=== PATIENT | female | born 1955 | race Hispanic/Latino ===

== ENCOUNTER 2016-08-21 07:21 | Day surgery (SDC) | payer MEDICARE ==
[2016-08-21] MEDS ORDERED: NACL 0.9% 500 ML 500 ML IV SCH (08:00)
[2016-08-21] MEDS ORDERED: HEPARIN/NS 5000 UNIT/500ML(CATH LAB) 1,000 ML IR ONE (09:40)
[2016-08-21] MEDS ORDERED: NITROGLYCERIN SYRINGE 3 ML ONE (09:40)
[2016-08-21] MEDS ORDERED: CALAN ONE (09:40)
[2016-08-21] MEDS ORDERED: XYLOCAINE 2% INFILTRATI ONE (09:40)
[2016-08-21] MEDS ORDERED: SUBLIMAZE ONE (09:42)
[2016-08-21] MEDS: VERSED ONE ×2 (09:55→10:05)
[2016-08-21] MEDS: HEPARIN 10,000 UNITS/10 ML ONE ×2 (09:57→10:17)
[2016-08-21] MEDS ORDERED: NACL 0.9% 500 ML 500 ML ONE ×2 (10:00→10:05)
--- NOTE | 2016-08-21 10:54 | Short Stay Summary ---
Short Stay Documentation Date of service: 08/21/16 - History H&P: obtained from office - Allergies and Medications Current Medications: Allergies azithromycin [From Zithromax Z-Ankur] Allergy (Verified 01/18/16 20:43) Unknown cephalexin monohydrate [From Keflex] Allergy (Verified 08/16/16 08:20) Unknown erythromycin base [From E-Mycin] Allergy (Verified 01/18/16 20:43) Unknown morphine Allergy (Verified 01/18/16 20:43) Unknown oxycodone Allergy (Verified 01/18/16 20:43) Unknown oxycodone HCl [From OxyContin] Allergy (Verified 08/16/16 08:23) Unknown aspirin Adverse Reaction (Verified 04/26/16 06:53) Bleeding codeine Adverse Reaction (Verified 04/26/16 06:53) Nausea Penicillins Adverse Reaction (Verified 04/26/16 06:53) Swelling antinflamatories Allergy (Uncoded 01/18/16 20:43) Unknown Home Medications Medication Instructions Recorded Confirmed Last Taken Type Citalopram [celeXA] 10 mg PO QDAY 01/20/16 08/21/16 08/20/16 History Fluticasone [Flonase] 1 spray NS QDAY 01/20/16 08/21/16 08/20/16 History Furosemide [Lasix TAB] 40 mg PO BID 01/20/16 08/21/16 08/20/16 History Gabapentin [Neurontin] 400 mg PO TID 01/20/16 08/21/16 08/20/16 History Glimepiride [Amaryl] 4 mg PO BID 01/20/16 08/21/16 08/20/16 History Insulin Regular, Human [Humulin R 8 - 12 unit SQ AC 01/20/16 08/21/16 08/20/16 History U-500 Kwikpen] Ipratropium/Albuter (Nf) 2 puff IH QID 01/20/16 08/21/16 08/20/16 History [Combivent Inhaler] Tizanidine HCl 4 mg PO TID 01/20/16 08/21/16 04/25/16 History Tramadol HCl [traMADol] 50 mg PO 4XD 01/20/16 08/21/16 08/20/16 History Multivitamin Tab W-MINERAL 1 each PO QDAY #30 tablet 04/27/16 08/21/16 08/20/16 Rx [Multiple Vitamin/Mineral (Theragran M)] Levothyroxine [Synthroid] 100 mcg PO QAM 08/16/16 08/21/16 08/20/16 History Pantoprazole [Protonix TAB] 40 mg PO QDAY 08/16/16 08/21/16 08/20/16 History Baclofen [Lioresal] 10 mg PO TID #30 tablet 08/18/16 08/21/16 08/20/16 Rx Losartan [Cozaar] 50 mg PO QDAY #30 tablet 08/18/16 08/21/16 08/20/16 Rx Metoprolol [Lopressor TAB] 25 mg PO BID #60 tablet 08/18/16 08/21/16 08/20/16 Rx ALBUTEROL NEB's [Proventil] 2.5 mg IH DAILY PRN 08/21/16 08/21/16 08/20/16 History Ipratropium/Albuter (Nf) 2 puff IH QID PRN 08/21/16 08/21/16 08/20/16 History [Combivent (Nf)] Active Medications Sodium Chloride (Nacl 0.9% 500 Ml) 500 mls @ 50 mls/hr IV DIRECT JESI Stop: 08/21/16 17:59 Last Admin: 08/21/16 08:44 Dose: 50 mls/hr - Brief post op/procedure progress note Date of procedure: 08/21/16 Pre-op diagnosis: angina Post-op diagnosis: same Procedure: see report Anesthesia: local Estimated blood loss: none Pathology: none - Disposition Condition at discharge: Good Disposition: DC-01 TO HOME OR SELFCARE - Discharge Diagnoses (1) Tobacco abuse Status: Chronic (2) CAD (coronary artery disease) Status: Acute Qualifiers: Coronary Disease-Associated Artery/Lesion type: [place] artery [place] vs. transplanted heart: N Associated angina: with stable angina (3) Hyperlipemia, mixed Status: Chronic (4) Chest pain Status: Chronic Qualifiers: Chest pain type: C Ischemic chest pain type: stable angina pectoris Qualified Code(s): I20.8 - Other forms of angina pectoris (5) Dyspnea Status: Chronic Qualifiers: Dyspnea type: dyspnea on exertion Qualified Code(s): R06.09 - Other forms of dyspnea (6) Hypertension Status: Chronic Qualifiers: Hypertension type: essential hypertension Qualified Code(s): I10 - Essential (primary) hypertension (7) Diabetes mellitus Status: Acute Qualifiers: Diabetes mellitus type: type 2 Diabetes mellitus complication status: with circulatory complication Diabetes mellitus complication detail: D Diabetic retinopathy severity: D Proliferative retinopathy type: P Diabetes mellitus macular edema: D Diabetes mellitus usp insulin use: without long term acute care registered nurse use Laterality: L Chronic kidney disease stage: C Short Stay Discharge Plan Activity: advance as tolerated Diet: low fat, low cholesterol, low salt, diabetic Special Instructions: hold Metformin (for two days) Follow up with: BECKA RECINOS MD [Primary Care Provider] - 7 Days
[2016-08-21 14:07] VITALS: BP 115/40
--- NOTE | 2016-08-21 14:22 | Cardiac Catherization Report ---
PROCEDURE: This is a left heart cath with a fractional flow reserve of the LAD done on 08/21/2016. CLINICAL INFORMATION: This is a 61-year-old female with history of tobacco abuse, known coronary artery disease, had nonobstructive coronary artery disease on cath done here for staged fractional flow reserve of the LAD, so left heart cath with fractional floor reserve of the LAD was performed in the right radial artery, sterile technique, local anesthesia, 6-[place] radial sheath inserted. Left system engaged with EBU 3.5 guiding catheter. FINDINGS: 1. Left main is large and patent, bifurcates a medium caliber LAD, proximal patent mid diffuse 70%, distal is patent. Diagonal 1 small caliber vessels is patent. Circumflex is a large caliber vessel is patent. OM1 is a large caliber vessel patent. Distal circumflex OM1 has 30% lesion. 2. Use fractional flow reserve wire and crossed after normalization, crossed into the distal LAD, gave intracoronary adenosine 140 mcg x2 and 0.75 and 0.76 and 2 infusions. 3. Discussion with the patient. The patient states had GI bleeding with aspirin, does not take aspirin. So in view of the patient's inability to take dual antiplatelet agents, at this time we will hold angioplasty and treat medically, remove coronary ffr wire, multiple angiograms, continue TIMI3 flow, 70% stenosis with no dissection or perforation noted. 4. A 6-[place]ran guiding catheter taken over guidewire, 6-[place]orran radial sheath was discontinued. Radial dressing applied. No hematoma. No bleeding. SUMMARY: 1. Significant mid LAD disease of 70% with fractional flow reserve is 0.75 and 0.76. 2. Nonobstructive coronary artery disease and OM1 and RCA. Normal LV function, left main patent, the OM1 patent. 3. We will try low-dose aspirin with PPI and Plavix and antianginal medications and treat medically. If the patient fails medical treatment, then we will consider either robotic OLIVAREZ to LAD or PCI of the LAD if the patient could handle dual antiplatelet agents. JOB# [id number] JINNY/THEODORA QUINTANA
== END 2016-08-21 14:30 | disposition home or self-care (01) ==
LOC: OPU 07:21
PROVIDERS: ATTEND Internal Medicine
DX: I25.10 Atherosclerotic heart disease of native coronary artery without angina pectoris (principal); E78.2 Mixed hyperlipidemia; I10 Essential (primary) hypertension; E11.9 Type 2 diabetes mellitus without complications; Z96.659 Presence of unspecified artificial knee joint; Z87.891 Personal history of nicotine dependence; Z79.899 Other long term (current) drug therapy; Z79.4 Long term (current) use of insulin; Z88.1 Allergy status to other antibiotic agents; Z88.5 Allergy status to narcotic agent; Z88.8 Allergy status to other drugs, medicaments and biological substances; Z88.0 Allergy status to penicillin; Z90.710 Acquired absence of both cervix and uterus
CPT/HCPCS: 82962; 85347; 93005; 93010; 93458; 93571; C1769; C1887; C1894; J0153; J1644; J2250; J3010; J7040; Q9967

== ENCOUNTER 2016-08-23 00:21 | Emergency (ER) | payer MEDICARE ==
[2016-08-23] MEDS ORDERED: NACL 0.9% 1000 ML 1,000 ML IV ONE (01:11)
[2016-08-23 01:48] LABS: Basophils % (Auto) 0.3 % (0.0-1.8); Eosinophils % (Auto) 1.2 % (0.0-4.3); Hematocrit 45.5 % (30.3-42.9); Hemoglobin 14.7 gm/dl (10.1-14.3); Mean Corpuscular HGB Conc 32 % (30-34); Mean Corpuscular Volume 80 fl (79-97); Platelet Count 419 K/mm3 (140-440); Red Blood Count 5.71 M/mm3 (3.65-5.03); White Blood Count 13.1 K/mm3 (4.5-11.0)
[2016-08-23 01:56] LABS: Mean Corpuscular Hemoglobin 26 pg (28-32)
[2016-08-23 01:58] LABS: INR 1.03 (0.87-1.13)
[2016-08-23 01:59] LABS: Partial Thromboplastin Time 30.7 Sec. (24.2-36.6)
[2016-08-23 02:04] LABS: Albumin 4.3 g/dL (3.9-5); Albumin/Globulin Ratio 1.2 %; Bilirubin,Total 0.4 mg/dL (0.1-1.2); Chloride 100.4 mmol/L (98-107); Potassium 4.6 mmol/L (3.6-5.0)
--- NOTE | 2016-08-23 11:56 | Emergency Department Report ---
ED GI Bleed HPI - General Chief complaint: GI Bleed Stated complaint: BLOOD CLOTS Time Seen by Provider: 08/23/16 11:45 Source: patient Mode of arrival: Ambulatory Limitations: Physical Limitation - History of Present Illness MD complaint: blood streaked stool -: Gradual, days(s) Location: diffuse (days ago but not today) Radiation: none Severity scale (0 -10): 3 Quality: other (aching) Consistency: intermittent Improves with: none Worsens with: none Associated Symptoms: abdominal pain. denies: nausea, vomiting, epistaxis, fever /chills, headaches, loss of appetite, malaise, easy bruising, rash, other bleeding, shortness of breath, syncope, weakness - Related Data Home Medications Medication Instructions Recorded Confirmed Last Taken Citalopram [celeXA] 10 mg PO QDAY 01/20/16 08/21/16 08/20/16 Fluticasone [Flonase] 1 spray NS QDAY 01/20/16 08/21/16 08/20/16 Furosemide [Lasix TAB] 40 mg PO BID 01/20/16 08/21/16 08/20/16 Gabapentin [Neurontin] 400 mg PO TID 01/20/16 08/21/16 08/20/16 Glimepiride [Amaryl] 4 mg PO BID 01/20/16 08/21/16 08/20/16 Insulin Regular, Human [Humulin R 8 - 12 unit SQ AC 01/20/16 08/21/16 08/20/16 U-500 Kwikpen] Ipratropium/Albuter (Nf) 2 puff IH QID 01/20/16 08/21/16 08/20/16 [Combivent Inhaler] Tizanidine HCl 4 mg PO TID 01/20/16 08/21/16 04/25/16 Tramadol HCl [traMADol] 50 mg PO 4XD 01/20/16 08/21/16 08/20/16 Levothyroxine [Synthroid] 100 mcg PO QAM 08/16/16 08/21/16 08/20/16 Pantoprazole [Protonix TAB] 40 mg PO QDAY 08/16/16 08/21/16 08/20/16 ALBUTEROL NEB's [Proventil 0.083% 2.5 mg IH DAILY PRN 08/21/16 08/21/16 08/20/16 NEBS] Ipratropium/Albuter (Nf) 2 puff IH QID PRN 08/21/16 08/21/16 08/20/16 [Combivent Inhaler] Previous Rx's Medication Instructions Recorded Last Taken Type Multivitamin Tab W-MINERAL 1 each PO QDAY #30 tablet 04/27/16 08/20/16 Rx [Multiple Vitamin/Mineral (Theragran M)] Baclofen [Lioresal] 10 mg PO TID #30 tablet 08/18/16 08/20/16 Rx Losartan [Cozaar] 50 mg PO QDAY #30 tablet 08/18/16 08/20/16 Rx Metoprolol [Lopressor TAB] 25 mg PO BID #60 tablet 08/18/16 08/20/16 Rx Aspirin EC [Aspirin Enteric Coated 81 mg PO QDAY #30 tablet.dr 08/21/16 Unknown Rx TAB] Clopidogrel Bisulfate [Plavix] 75 mg PO DAILY #30 tablet 08/21/16 Unknown Rx ISOSORBIDE MONOnitrate [Imdur ER] 30 mg PO DAILY #30 tab.er.24h 08/21/16 Unknown Rx Pantoprazole [Protonix] 40 mg PO QDAY #30 tablet 08/21/16 Unknown Rx Levofloxacin [Levaquin TAB] 500 mg PO BID #20 tablet 08/23/16 Unknown Rx Allergies Allergy/AdvReac Type Severity Reaction Status Date / Time azithromycin Allergy Unknown Verified 01/18/16 20:43 [From Zithromax Z-Ankur] cephalexin monohydrate Allergy Unknown Verified 08/16/16 08:20 [From Keflex] erythromycin base Allergy Unknown Verified 01/18/16 20:43 [From E-Mycin] morphine Allergy Unknown Verified 01/18/16 20:43 oxycodone Allergy Unknown Verified 01/18/16 20:43 oxycodone HCl Allergy Unknown Verified 08/16/16 08:23 [From OxyContin] aspirin AdvReac Bleeding Verified 04/26/16 06:53 codeine AdvReac Nausea Verified 04/26/16 06:53 Penicillins AdvReac Swelling Verified 04/26/16 06:53 antinflamatories Allergy Unknown Uncoded 01/18/16 20:43 ED Review of Systems ROS: Stated complaint: BLOOD CLOTS Other details as noted in HPI Other: GENERAL: No weight change, fatigue, weakness, fever, chills, or night sweats SKIN: No changes in skin or hair, no itching, no rashes, no jaundice HEAD: No trauma, headache, or visual changes EYES: No blurriness, tearing, itching, acute visual loss, conjunctival discoloration, or scleral icterus EARS: No hearing loss, tinnitus, vertigo, or earache NOSE: No rhinorrhea, stuffiness, sneezing, itching, or epistaxis MOUTH: No bleeding gums, hoarseness, sore throat, or swelling CARDIAC: No new murmur, chest pain, palpitations, dyspnea on exertion, orthopnea , PND, or edema RESPIRATORY: No shortness of breath, wheeze, cough, sputum production, hemoptysis, pneumonia, asthma, bronchitis, or emphysema GI: Abdominal pain, hematochezia URINARY: No frequency, urgency, polyuria, dysuria, hematuria, or incontinence MUSCULOSKELETAL: No muscle weakness, joint stiffness, decrease in range of motion, redness, swelling, tenderness NEUROLOGIC: No loss of sensation, numbness, tingling, tremors, weakness, paralysis, seizures HEMATOLOGIC: No anemia, easy bruising, bleeding, petechiae, or purpura ENDOCRINE: No hot or cold intolerance, sweating, polyuria, polydipsia or, polyphagia no thyroid problems PSYCHIATRIC: No change in mood, no anxiety, no depression ED Past Medical Hx - Past Medical History Hx Hypertension: Yes Hx Congestive Heart Failure: Yes Hx Diabetes: Yes Hx Liver Disease: Yes (enlarged liver) Hx Arthritis: Yes Hx Kidney Stones: Yes Hx Asthma: No Hx COPD: Yes Additional medical history: parathyroid probs. chronic back pain. fibroid mylagia. neuropathy. anemia - Surgical History Additional Surgical History: back. hysterectomy. knee replacement right 1997 - Social History Smoking Status: Former Smoker Substance Use Type: None - Medications Home Medications: Home Medications Medication Instructions Recorded Confirmed Last Taken Type Citalopram [celeXA] 10 mg PO QDAY 01/20/16 08/21/16 08/20/16 History Fluticasone [Flonase] 1 spray NS QDAY 01/20/16 08/21/16 08/20/16 History Furosemide [Lasix TAB] 40 mg PO BID 11/08/21/16 08/20/16 History Gabapentin [Neurontin] 400 mg PO TID 01/20/16 08/21/16 08/20/16 History Glimepiride [Amaryl] 4 mg PO BID 01/20/16 08/21/16 08/20/16 History Insulin Regular, Human [Humulin R 8 - 12 unit SQ AC 01/20/16 08/21/16 08/20/16 History U-500 Kwikpen] Ipratropium/Albuter (Nf) 2 puff IH QID 01/20/16 08/21/16 08/20/16 History [Combivent Inhaler] Tizanidine HCl 4 mg PO TID 01/20/16 08/21/16 04/25/16 History Tramadol HCl [traMADol] 50 mg PO 4XD 01/20/16 08/21/16 08/20/16 History Multivitamin Tab W-MINERAL 1 each PO QDAY #30 tablet 04/27/16 08/21/16 08/20/16 Rx [Multiple Vitamin/Mineral (Theragran M)] Levothyroxine [Synthroid] 100 mcg PO QAM 08/16/16 08/21/16 08/20/16 History Pantoprazole [Protonix TAB] 40 mg PO QDAY 08/16/16 08/21/16 08/20/16 History Baclofen [Lioresal] 10 mg PO TID #30 tablet 08/18/16 08/21/16 08/20/16 Rx Losartan [Cozaar] 50 mg PO QDAY #30 tablet 08/18/16 08/21/16 08/20/16 Rx Metoprolol [Lopressor TAB] 25 mg PO BID #60 tablet 08/18/16 08/21/16 08/20/16 Rx ALBUTEROL NEB's [Proventil 0.083% 2.5 mg IH DAILY PRN 08/21/16 08/21/16 History NEBS] Aspirin EC [Aspirin Enteric Coated 81 mg PO QDAY #30 tablet. 08/21/16 Unknown Rx TAB] Clopidogrel Bisulfate [Plavix] 75 mg PO DAILY #30 tablet 08/21/16 Unknown Rx ISOSORBIDE MONOnitrate [Imdur ER] 30 mg PO DAILY #30 tab.er.24h 08/21/16 Unknown Rx Ipratropium/Albuter (Nf) 2 puff IH QID PRN 08/21/16 08/21/16 08/20/16 History [Combivent Inhaler] Pantoprazole [Protonix] 40 mg PO QDAY #30 tablet 08/21/16 Unknown Rx Levofloxacin [Levaquin TAB] 500 mg PO BID #20 tablet 08/23/16 Unknown Rx ED Physical Exam - General Limitations: Physical Limitation - Other Other exam information: GENERAL: Patient in no acute distress HEAD: Normocephalic, atraumatic EYES: PERRLA, EOM intact, no scleral icterus, no conjunctival hemorrhage, visual marquis and acuity wnl, NOSE: No tenderness, discharge, sinus tenderness MOUTH: No erythema, bleeding, exudate HEART: Regular rate and rhythm, no murmur, S1-S2 are auscultated, pulses are symmetric LUNGS: No wheezing, rales, rhonchi, bilateral breath sounds ABDOMEN: Normal bowel sounds, no tenderness, no rebound, no guarding, no masses , no CVA tenderness MUSCULOSKELETAL: Normal joint range of motion, no redness, no swelling, no tenderness NEUROLOGIC: GCS 15, Alert and Oriented x3, Cranial nerves intact, normal sensation, normal strength, no cerebellar deficit PSYCHIATRIC: No homicidal or suicidal ideation, no anxiety, no depression, no hallucinations SKIN: Skin is warm and dry, no wounds, no rashes ED Course Vital Signs 08/23/16 08/23/16 08/23/16 01:05 04:57 11:44 Temperature 98.4 F 97.9 F Pulse Rate 68 60 89 Respiratory 16 16 18 Rate Blood Pressure 140/51 151/81 Blood Pressure 181/76 [Right] O2 Sat by Pulse 97 96 100 Oximetry 08/23/16 13:54 Temperature Pulse Rate 81 Respiratory 18 Rate Blood Pressure Blood Pressure 187/53 [Right] O2 Sat by Pulse 97 Oximetry ED Medical Decision Making - Lab Data Result diagrams: 08/23/16 01:16 08/23/16 01:16 - EKG Data Interpretation: no acute changes - Radiology Data Radiology results: report reviewed - Medical Decision Making Patient comfortable. Updated with results. Plan discharge with outpatient follow-up. Patient agrees with plan and will return if symptoms worsen. Critical care attestation.: If time is entered above; I have spent that time in minutes in the direct care of this critically ill patient, excluding procedure time. ED Disposition Clinical Impression: Colitis Disposition: DC-01 TO HOME OR SELFCARE Is pt being admited?: No Condition: Stable Instructions: Infectious Colitis (ED) Prescriptions: Levofloxacin [Levaquin TAB] 500 mg PO BID #20 tablet Referrals: PRIMARY CARE, [Primary Care Provider] - 2-3 Days [facility] [Provider Group] - 2-3 Days Forms: Accompanied Note Time of Disposition: 14:18
[2016-08-23] MEDS ORDERED: NACL 0.9% 1000 ML 1,000 ML ONE (12:32)
[2016-08-23 13:55] VITALS: BP 187/53
--- NOTE | 2016-08-23 13:59 | Cat Scan Report ---
CT ABDOMEN AND PELVIS WITH CONTRAST INDICATION: Pain. COMPARISON: None similar. FINDINGS: Abdomen and pelvis CT performed following intravenous administration of 100 cc of Omnipaque 300. LUNG BASES: Top normal heart size. Few aortic and coronary atherosclerotic calcifications. Slight left basilar horizontal atelectasis or scarring. Some motion artifact. No effusions. Nonspecific distal esophageal wall prominence/thickening, not excluded for gastroesophageal reflux and/or hiatal hernia, amongst others. ABDOMEN: Left hepatic lobe tip extends into the left upper quadrant. Mild hepatic surface nodularity. Otherwise unremarkable liver, spleen, gallbladder, pancreas, adrenals, IVC and non-hydronephrotic kidneys. Nonaneurysmal abdominal aorta with extensive atherosclerotic aortoiliac calcifications. Few small retroperitoneal lymph nodes, predominantly subcentimeter with the largest aortocaval lymph node measuring 1.2 x 0.7 cm, axial image 38, series 2. No ascites. Patent vessels. Nonopacified GI tract evaluation limited, though grossly nonobstructive. Normal appendix. Ascending colon stool. However, distal transverse colon, splenic flexure and almost entire descending colon demonstrates diffuse wall thickening and surrounding fat stranding. PELVIS: Uterus surgically absent. Unremarkable urinary bladder and the rectum. Mild sigmoid diverticulosis. Few pelvic phleboliths. No free fluid or significant adenopathy. Moderate multilevel imaged spinal degenerative changes, more so mid to lower thoracic and lower lumbar with disc degeneration/vacuum phenomenon and spurring. Left gluteal subcutaneous calcified injection granuloma. CONCLUSION: 1. CT findings in keeping with colitis involving distal transverse colon, splenic flexure and the descending colon, as detailed above. 2. Various other incidental findings, including the lung bases, mild cirrhosis, hysterectomy, diverticulosis and multilevel spinal degenerative changes, amongst others, as above. Thank you for the opportunity to participate in this patient's care.
[2016-08-23] MEDS ORDERED: LEVAQUIN PO ONE (14:15)
== END 2016-08-23 14:54 | disposition home or self-care (01) ==
LOC: ED 00:21
DX: K52.9 Noninfective gastroenteritis and colitis, unspecified (principal); I10 Essential (primary) hypertension; E11.9 Type 2 diabetes mellitus without complications; J44.9 Chronic obstructive pulmonary disease, unspecified; Z87.891 Personal history of nicotine dependence
CPT/HCPCS: 36415; 74177; 80053; 83690; 85025; 85610; 85730; 86850; 86900; 86901; 93005; 93010; 96360; 96361; 99284; J7030; Q9967

== ENCOUNTER 2016-12-03 10:28 | Inpatient (IN) | payer MEDICARE, SELFPAY ==
[2016-12-03] MEDS ORDERED: BABY ASPIRIN PO ONE (11:39)
[2016-12-03 11:40] LABS: Basophils % (Auto) 0.4 % (0.0-1.8); Eosinophils % (Auto) 1.3 % (0.0-4.3); Mean Corpuscular HGB Conc 30 % (30-34); Mean Corpuscular Volume 79 fl (79-97); Platelet Count 336 K/mm3 (140-440); Red Blood Count 2.27 M/mm3 (3.65-5.03); Red Cell Distribution Width 15.4 % (13.2-15.2)
[2016-12-03 11:45] LABS: Hemoglobin 5.4 gm/dl (10.1-14.3)
--- NOTE | 2016-12-03 11:45 | Emergency Department Report ---
ED Chest Pain HPI - General Chief Complaint: Chest Pain Stated Complaint: CHEST PAIN Time Seen by Provider: 12/03/16 11:32 Source: EMS Mode of arrival: Ambulatory Limitations: Physical Limitation - History of Present Illness Initial Comments: Patient is 62 years old female with history of coronary artery disease hypertension and diabetes coming today's chest pain started one week getting worse last night described as pressure and left-sided. Patient did have cardiac cath in August 2016 which showed more than 70% stenosis in the mid LAD. According to Dr. Tobias report that they will try medical treatments if it fail then the patient would need a stent. MD Complaint: chest pain -: Gradual Onset: during rest, during exertion Pain Location: left chest Severity scale (0 -10): 7 Quality: pressure Consistency: intermittent - Related Data Home Medications Medication Instructions Recorded Confirmed Last Taken Citalopram [celeXA] 10 mg PO QDAY 01/20/16 08/21/16 08/20/16 Fluticasone [Flonase] 1 spray NS QDAY 01/20/16 08/21/16 08/20/16 Furosemide [Lasix TAB] 40 mg PO BID 01/20/16 08/21/16 08/20/16 Gabapentin [Neurontin] 400 mg PO TID 01/20/16 08/21/16 08/20/16 Glimepiride [Amaryl] 4 mg PO BID 01/20/16 08/21/16 08/20/16 Insulin Regular, Human [Humulin R 8 - 12 unit SQ AC 01/20/16 08/21/16 08/20/16 U-500 Kwikpen] Ipratropium/Albuter (Nf) 2 puff IH QID 01/20/16 08/21/16 08/20/16 [Combivent Inhaler] Tizanidine HCl 4 mg PO TID 01/20/16 08/21/16 04/25/16 Tramadol HCl [traMADol] 50 mg PO 4XD 01/20/16 08/21/16 08/20/16 Levothyroxine [Synthroid] 100 mcg PO QAM 08/16/16 08/21/16 08/20/16 Pantoprazole [Protonix TAB] 40 mg PO QDAY 08/16/16 08/21/16 08/20/16 ALBUTEROL NEB's [Proventil 0.083% 2.5 mg IH DAILY PRN 08/21/16 08/21/16 08/20/16 NEBS] Ipratropium/Albuter (Nf) 2 puff IH QID PRN 08/21/16 08/21/16 08/20/16 [Combivent Inhaler] Previous Rx's Medication Instructions Recorded Last Taken Type Multivitamin Tab W-MINERAL 1 each PO QDAY #30 tablet 04/27/16 08/20/16 Rx [Multiple Vitamin/Mineral (Theragran M)] Baclofen [Lioresal] 10 mg PO TID #30 tablet 08/18/16 08/20/16 Rx Losartan [Cozaar] 50 mg PO QDAY #30 tablet 08/18/16 08/20/16 Rx Metoprolol [Lopressor TAB] 25 mg PO BID #60 tablet 08/18/16 08/20/16 Rx Aspirin EC [Aspirin Enteric Coated 81 mg PO QDAY #30 tablet. 08/21/16 Unknown Rx TAB] Clopidogrel Bisulfate [Plavix] 75 mg PO DAILY #30 tablet 08/21/16 Unknown Rx ISOSORBIDE MONOnitrate [Imdur ER] 30 mg PO DAILY #30 tab.er.24h 08/21/16 Unknown Rx Pantoprazole [Protonix] 40 mg PO QDAY #30 tablet 08/21/16 Unknown Rx Levofloxacin [Levaquin TAB] 500 mg PO BID #20 tablet 08/23/16 Unknown Rx Allergies Allergy/AdvReac Type Severity Reaction Status Date / Time azithromycin Allergy Unknown Verified 01/18/16 20:43 [From Zithromax Z-Ankur] cephalexin monohydrate Allergy Unknown Verified 08/16/16 08:20 [From Keflex] erythromycin base Allergy Unknown Verified 01/18/16 20:43 [From E-Mycin] morphine Allergy Unknown Verified 01/18/16 20:43 oxycodone Allergy Unknown Verified 01/18/16 20:43 oxycodone HCl Allergy Unknown Verified 08/16/16 08:23 [From OxyContin] aspirin AdvReac Bleeding Verified 04/26/16 06:53 codeine AdvReac Nausea Verified 04/26/16 06:53 Penicillins AdvReac Swelling Verified 04/26/16 06:53 antinflamatories Allergy Unknown Uncoded 01/18/16 20:43 Heart Score - HEART Score History: Highly suspicious EKG: Significant ST-depression Age: 45-65 Risk factors: > 3 risk factors or hx of atherosclerotic disease Troponin: < normal limit HEART Score: 7 - Critical Actions Critical Actions: >7 pts:50-65% risk of adverse cardiac event. Early invasive measures ED Review of Systems ROS: Stated complaint: CHEST PAIN Other details as noted in HPI Comment: All other systems reviewed and negative Constitutional: denies: chills, fever ENT: denies: throat pain, dental pain Respiratory: shortness of breath. denies: cough, orthopnea Cardiovascular: chest pain. denies: palpitations, dyspnea on exertion Gastrointestinal: denies: abdominal pain, nausea, vomiting, diarrhea, constipation, hematemesis, melena, hematochezia Skin: denies: rash Neurological: denies: headache, weakness, numbness, paresthesias ED Past Medical Hx - Past Medical History Hx Hypertension: Yes Hx Congestive Heart Failure: Yes Hx Diabetes: Yes Hx Liver Disease: Yes (enlarged liver) Hx Arthritis: Yes Hx Kidney Stones: Yes Hx Asthma: No Hx COPD: Yes Additional medical history: parathyroid probs. chronic back pain. fibroid mylagia. neuropathy. anemia - Surgical History Additional Surgical History: back. hysterectomy. knee replacement right 1997 - Social History Smoking Status: Never Smoker - Medications Home Medications: Home Medications Medication Instructions Recorded Confirmed Last Taken Type Citalopram [celeXA] 10 mg PO QDAY 01/20/16 08/21/16 08/20/16 History Fluticasone [Flonase] 1 spray NS QDAY 01/20/16 08/21/16 08/20/16 History Furosemide [Lasix TAB] 40 mg PO BID 01/20/16 08/21/16 08/20/16 History Gabapentin [Neurontin] 400 mg PO TID 01/20/16 08/21/16 08/20/16 History Glimepiride [Amaryl] 4 mg PO BID 01/20/16 08/21/16 08/20/16 History Insulin Regular, Human [Humulin R 8 - 12 unit SQ AC 01/20/16 08/21/16 08/20/16 History U-500 Kwikpen] Ipratropium/Albuter (Nf) 2 puff IH QID 01/20/16 08/21/16 08/20/16 History [Combivent Inhaler] Tizanidine HCl 4 mg PO TID 01/20/16 08/21/16 04/25/16 History Tramadol HCl [traMADol] 50 mg PO 4XD 01/20/16 08/21/16 08/20/16 History Multivitamin Tab W-MINERAL 1 each PO QDAY #30 tablet 04/27/16 08/21/16 08/20/16 Rx [Multiple Vitamin/Mineral (Theragran M)] Levothyroxine [Synthroid] 100 mcg PO QAM 08/16/16 08/21/16 08/20/16 History Pantoprazole [Protonix TAB] 40 mg PO QDAY 08/16/16 08/21/16 08/20/16 History Baclofen [Lioresal] 10 mg PO TID #30 tablet 08/18/16 08/21/16 08/20/16 Rx Losartan [Cozaar] 50 mg PO QDAY #30 tablet 08/18/16 08/21/16 08/20/16 Rx Metoprolol [Lopressor TAB] 25 mg PO BID #60 tablet 08/18/16 08/21/16 08/20/16 Rx ALBUTEROL NEB's [Proventil 0.083% 2.5 mg IH DAILY PRN 08/21/16 08/21/16 History NEBS] Aspirin EC [Aspirin Enteric Coated 81 mg PO QDAY #30 tablet. 08/21/16 Unknown Rx TAB] Clopidogrel Bisulfate [Plavix] 75 mg PO DAILY #30 tablet 08/21/16 Unknown Rx ISOSORBIDE MONOnitrate [Imdur ER] 30 mg PO DAILY #30 tab.er.24h 08/21/16 Unknown Rx Ipratropium/Albuter (Nf) 2 puff IH QID PRN 08/21/16 08/21/16 08/20/16 History [Combivent Inhaler] Pantoprazole [Protonix] 40 mg PO QDAY #30 tablet 08/21/16 Unknown Rx Levofloxacin [Levaquin TAB] 500 mg PO BID #20 tablet 08/23/16 Unknown Rx ED Physical Exam - General Limitations: Physical Limitation General appearance: alert, in no apparent distress - Head Head exam: Present: normocephalic - Eye Eye exam: Present: normal appearance, other (pale conjuctiva) - ENT ENT exam: Present: normal exam - Neck Neck exam: Present: normal inspection - Respiratory Respiratory exam: Present: normal lung sounds bilaterally - Cardiovascular Cardiovascular Exam: Present: regular rate, normal rhythm, normal heart sounds - GI/Abdominal GI/Abdominal exam: Present: soft, normal bowel sounds. Absent: distended, tenderness, guarding, rebound, rigid, diminished bowel sounds, organomegaly, mass, bruit, pulsatile mass, hernia - Extremities Exam Extremities exam: Present: normal inspection, normal capillary refill. Absent: pedal edema - Back Exam Back exam: Present: normal inspection. Absent: CVA tenderness (R), CVA tenderness (L) - Neurological Exam Neurological exam: Present: alert, oriented X3, CN II-XII intact - Skin Skin exam: Present: warm, intact, normal color ED Course Vital Signs 12/03/16 10:48 Temperature 98.1 F Pulse Rate 69 Respiratory 16 Rate Blood Pressure 113/35 Blood Pressure 113/35 [Right] O2 Sat by Pulse 100 Oximetry RIP score - Rip Score Age > 65: (0) No Aspirin use within the Past 7 Days: (0) No 3 or more CAD Risk Factors: (1) Yes 2 or more Angina events in past 24 hrs: (1) Yes Known CAD with more than 50% Stenosis: (0) No Elevated Cardiac Markers: (0) No ST Deviation Greater than 0.5mm: (0) No RIP Score: 2 ED Medical Decision Making - Lab Data Result diagrams: 12/03/16 10:58 12/03/16 10:58 - EKG Data -: EKG Interpreted by Nh EKG shows normal: sinus rhythm - EKG Data Interpretation: nonspecific ST-T wave salty - Radiology Data Radiology results: report reviewed CXR WITH MILD CARDIOMEGALYY. - Medical Decision Making DISCUSS WITH DR NOVAK FOR ADMISSION. HE AGREED TO ADMIT TO HIS SERVICE. Critical care attestation.: If time is entered above; I have spent that time in minutes in the direct care of this critically ill patient, excluding procedure time. ED Disposition Clinical Impression: Anemia due to acute blood loss Chest pain Qualifiers: Ischemic chest pain type: stable angina pectoris Qualified Code(s): I20.8 - Other forms of angina pectoris Disposition: -09 OP ADMIT IP TO THIS HOSP Is pt being admited?: Yes Condition: Stable Instructions: Chest Pain (ED) Referrals: PRIMARY CARE,MD [Primary Care Provider] - 3-5 Days
[2016-12-03 11:46] LABS: Mean Corpuscular Hemoglobin 24 pg (28-32)
[2016-12-03 12:00] LABS: Alanine Aminotransferase 11 units/L (7-56); Albumin 3.6 g/dL (3.9-5); Albumin/Globulin Ratio 1.3 %; Alkaline Phosphatase 92 units/L (35-129); Anion Gap 17 mmol/L; Blood Urea Nitrogen 26 mg/dL (7-17); Calcium 8.9 mg/dL (8.4-10.2); Carbon Dioxide 25 mmol/L (22-30); Chloride 100.5 mmol/L (98-107); Glucose 88 mg/dL (65-100); Potassium 3.6 mmol/L (3.6-5.0); Sodium 139 mmol/L (137-145); Total Protein 6.3 g/dL (6.3-8.2)
--- NOTE | 2016-12-03 12:16 | XRay Report ---
AP CHEST: HISTORY: chest pain Heart size and pulmonary venous structures are of the upper limits of normal. The lungs are clear. No evidence for pneumonia, CHF or pneumothorax. The bony structures are grossly intact. IMPRESSION: Borderline heart size and pulmonary venous structures. No CHF.
[2016-12-03 12:19] LABS: Bilirubin,Urine NEG (Negative); Blood,Urine NEG (Negative); Ketones,Urine NEG (Negative); Leukocyte Esterase,Urine NEG (Negative); Nitrite,Urine NEG (Negative); Protein,Urine <15 mg/dL mg/dL (Negative); RBC,Urine < 1.0 /HPF (0.0-6.0); Urobilinogen,Urine < 2.0 mg/dL (<2.0)
[2016-12-03 12:23] LABS: INR 1.15 (0.87-1.13)
[2016-12-03 12:24] LABS: Partial Thromboplastin Time 29.3 Sec. (24.2-36.6)
[2016-12-03] MEDS ORDERED: NACL 0.9% 500 ML 500 ML IV ONE ×2 (12:28→23:39)
--- NOTE | 2016-12-03 12:37 | History and Physical Report ---
History of Present Illness Chief complaint: My chest hurts History of present illness: 61 YO Female with OA, COPD, Depression, Diastolic CHF, DM, HTN, Nicotine Dependence, CAD GI Bleed S/P Colonoscopy pending outpatient pill endoscopy, presents to ED for evaluation. Pt states that she has experienced pain in her chest over the past week, with worsening symptoms over the past 1 day. Pt states that pain is 7/10, crushing in nature, localized to the left chest, nonradiating, worsened with exertion, unrelieved with rest, intermittent, no associated with shortness of breath, or diaphoresis. Pt also complains of dark tarry stool. No reports of fever, chills, palpitations, syncope, BRBPR, productive cough, prolonged travel/immobility, individual/family history of DVT/ PE, hemoptysis, or recent ill contacts. Past History Past Medical History: arthritis, CAD, COPD, diabetes, heart failure, hypertension Past Surgical History: hysterectomy, total knee replacement, Other (back) Social history: , smoking Family history: hypertension Medications and Allergies Allergies Allergy/AdvReac Type Severity Reaction Status Date / Time azithromycin Allergy Unknown Verified 01/18/16 20:43 [From Zithromax Z-Ankur] cephalexin monohydrate Allergy Unknown Verified 08/16/16 08:20 [From Keflex] erythromycin base Allergy Unknown Verified 01/18/16 20:43 [From E-Mycin] morphine Allergy Unknown Verified 01/18/16 20:43 oxycodone Allergy Unknown Verified 01/18/16 20:43 oxycodone HCl Allergy Unknown Verified 08/16/16 08:23 [From OxyContin] aspirin AdvReac Bleeding Verified 04/26/16 06:53 codeine AdvReac Nausea Verified 04/26/16 06:53 Penicillins AdvReac Swelling Verified 04/26/16 06:53 antinflamatories Allergy Unknown Uncoded 01/18/16 20:43 Home Medications Medication Instructions Recorded Confirmed Last Taken Type Citalopram [celeXA] 10 mg PO QDAY 01/20/16 08/21/16 08/20/16 History Fluticasone [Flonase] 1 spray NS QDAY 01/20/16 08/21/16 08/20/16 History Furosemide [Lasix TAB] 40 mg PO BID 01/20/16 08/21/16 08/20/16 History Gabapentin [Neurontin] 400 mg PO TID 01/20/16 08/21/16 08/20/16 History Glimepiride [Amaryl] 4 mg PO BID 01/20/16 08/21/16 08/20/16 History Insulin Regular, Human [Humulin R 8 - 12 unit SQ AC 01/20/16 08/21/16 08/20/16 History U-500 Kwikpen] Ipratropium/Albuter (Nf) 2 puff IH QID 01/20/16 08/21/16 08/20/16 History [Combivent Inhaler] Tizanidine HCl 4 mg PO TID 01/20/16 08/21/16 04/25/16 History Tramadol HCl [traMADol] 50 mg PO 4XD 01/20/16 08/21/16 08/20/16 History Multivitamin Tab W-MINERAL 1 each PO QDAY #30 tablet 04/27/16 08/21/16 08/20/16 Rx [Multiple Vitamin/Mineral (Theragran M)] Levothyroxine [Synthroid] 100 mcg PO QAM 08/16/16 08/21/16 08/20/16 History Pantoprazole [Protonix TAB] 40 mg PO QDAY 08/16/16 08/21/16 08/20/16 History Baclofen [Lioresal] 10 mg PO TID #30 tablet 08/18/16 08/21/16 08/20/16 Rx Losartan [Cozaar] 50 mg PO QDAY #30 tablet 08/18/16 08/21/16 08/20/16 Rx Metoprolol [Lopressor TAB] 25 mg PO BID #60 tablet 08/18/16 08/21/16 08/20/16 Rx ALBUTEROL NEB's [Proventil 0.083% 2.5 mg IH DAILY PRN 08/21/16 08/21/16 History NEBS] Aspirin EC [Aspirin Enteric Coated 81 mg PO QDAY #30 tablet. 08/21/16 Unknown Rx TAB] Clopidogrel Bisulfate [Plavix] 75 mg PO DAILY #30 tablet 08/21/16 Unknown Rx ISOSORBIDE MONOnitrate [Imdur ER] 30 mg PO DAILY #30 tab.er.24h 08/21/16 Unknown Rx Ipratropium/Albuter (Nf) 2 puff IH QID PRN 08/21/16 08/21/16 08/20/16 History [Combivent Inhaler] Pantoprazole [Protonix] 40 mg PO QDAY #30 tablet 08/21/16 Unknown Rx Levofloxacin [Levaquin TAB] 500 mg PO BID #20 tablet 08/23/16 Unknown Rx Review of Systems Constitutional: no weight loss, no weight gain, no fever, no chills Ears, nose, mouth and throat: no ear pain, no ear discharge, no tinnitis, no decreased hearing, no nose pain, no nasal congestion, no nasal discharge, no sinus pressure Cardiovascular: chest pain, shortness of breath, no orthopnea, no palpitations, no rapid/irregular heart beat, no edema, no syncope, no paroxysmal nocturnal dyspnea Respiratory: no cough, no cough with sputum, no excessive sputum, no hemoptysis , no dyspnea on exertion Gastrointestinal: melena, no abdominal pain, no nausea, no vomiting, no diarrhea , no constipation Genitourinary Female: no pelvic pain, no flank pain, no menorrhagia, no dysuria , no urinary frequency, no urgency Rectal: no pain, no incontinence, no bleeding Musculoskeletal: no neck stiffness, no neck pain, no shooting arm pain, no arm numbness/tingling, no low back pain, no shooting leg pain Integumentary: no rash, no pruritis, no redness, no sores, no wounds, no jaundice, no boils Neurological: no head injury, no transient paralysis, no paralysis, no weakness , no parathesias, no numbness, no tingling, no seizures, no syncope, no tremors , no ataxia, no lack of coordination Psychiatric: no anxiety, no memory loss, no change in sleep habits, no sleep disturbances, no insomnia, no hypersomnia, no change in appetite, no change in libido, no suicidal ideation, no disorientation, no hallucinations Endocrine: no cold intolerance, no heat intolerance, no polyphagia, no excessive thirst, no polydipsia, no polyuria, no nocturia, no excessive sweating Allergic/Immunologic: no urticaria, no allergic rhinitis, no wheezing Exam - Constitutional Vitals: Temp Pulse Resp BP Pulse Ox 98.1 F 69 16 113/35 100 12/03/16 10:48 10/01/17 10:48 12/03/16 10:48 12/03/16 10:48 12/03/16 10:48 General appearance: Present: mild distress, obese, disheveled - EENT Eyes: Present: PERRL ENT: hearing intact, clear oral mucosa - Neck Neck: Present: supple, normal ROM - Respiratory Respiratory effort: normal Respiratory: bilateral: CTA, diminished - Cardiovascular Heart Sounds: Present: S1 & S2. Absent: rub, click - Extremities Extremities: pulses symmetrical, No edema Extremity abnormal: edema Peripheral Pulses: within normal limits - Abdominal General gastrointestinal: Present: soft, non-tender, non-distended, normal bowel sounds Female genitourinary: Present: normal - Integumentary Integumentary: Present: clear, dry, decreased turgor - Musculoskeletal Musculoskeletal: generalized weakness - Psychiatric Psychiatric: appropriate mood/affect, intact judgment & insight - Neurologic Neurologic: CNII-XII intact, moves all extremities Results - Labs CBC & Chem 7: 12/03/16 14:20 12/03/16 14:20 Labs: Abnormal lab results 12/03/16 12/03/16 12/03/16 Range/Units 10:49 10:58 10:58 RBC 2.27 L (3.65-5.03) M/mm3 Hgb 5.4 L* (10.1-14.3) gm/dl Hct 18.0 L* (30.3-42.9) % MCH 24 L (28-32) pg RDW 15.4 H (13.2-15.2) % Seg Neutrophils % 78.6 H (40.0-70.0) % Seg Neutrophils # 8.6 H (1.8-7.7) K/mm3 PT (12.2-14.9) Sec. INR (0.87-1.13) BUN 26 H (7-17) mg/dL POC Glucose 111 H (70-105) Albumin 3.6 L (3.9-5) g/dL 12/03/16 Range/Units 11:51 RBC (3.65-5.03) M/mm3 Hgb (10.1-14.3) gm/dl Hct (30.3-42.9) % MCH (28-32) pg RDW (13.2-15.2) % Seg Neutrophils % (40.0-70.0) % Seg Neutrophils # (1.8-7.7) K/mm3 PT 15.3 H (12.2-14.9) Sec. INR 1.15 H (0.87-1.13) BUN (7-17) mg/dL POC Glucose (70-105) Albumin (3.9-5) g/dL Assessment and Plan - Patient Problems (1) ACS (acute coronary syndrome) Current Visit: Yes Status: Acute Plan to address problem: Cardiology consulted, Serial cardiac enzymes, ekg, telemetry, d dimer, ppi therapy, (2) Angina at rest Current Visit: Yes Status: Acute Plan to address problem: Serial cardiac enzymes, ekg, telemetry, lipid panel, supportive care, cardiology consulted (3) Blood loss anemia Current Visit: Yes Status: Acute Plan to address problem: PRBC transfusion. Pt is S/P colonoscopy, concompliant with capsule endoscopy. Outpatient GI F/U for capsule endoscopy (4) Lower GI hemorrhage Current Visit: Yes Status: Acute Plan to address problem: PRBC transfusion, ppi therapy, serial cbc, serial abdominal exam (5) CAD (coronary artery disease) Current Visit: No Status: Acute Qualifiers: Coronary Disease-Associated Artery/Lesion type: nikolai artery Andreafski vs. transplanted heart: N Associated angina: with stable angina Plan to address problem: Continue medical management, risk factor reduction, low cholesterol diet, lipid panel (6) DVT prophylaxis Current Visit: Yes Status: Acute
[2016-12-03] MEDS ORDERED: DULCOLAX PR PRN (14:12)
[2016-12-03] MEDS ORDERED: TYLENOL PO PRN (14:12)
[2016-12-03] MEDS ORDERED: MILK OF MAGNESIA PO PRN (14:12)
[2016-12-03] MEDS ORDERED: SODIUM CHLORIDE FLUSH SYRINGE 10 ML IV PRN (14:12)
[2016-12-03 14:53] LABS: Basophils % (Auto) 0.4 % (0.0-1.8); Eosinophils % (Auto) 1.2 % (0.0-4.3); Mean Corpuscular HGB Conc 31 % (30-34); Mean Corpuscular Volume 78 fl (79-97); Platelet Count 345 K/mm3 (140-440); Red Blood Count 2.21 M/mm3 (3.65-5.03); Red Cell Distribution Width 15.4 % (13.2-15.2)
[2016-12-03 14:59] LABS: Anion Gap 16 mmol/L; BUN/Creatinine Ratio 35.71; Blood Urea Nitrogen 25 mg/dL (7-17); Calcium 8.7 mg/dL (8.4-10.2); Carbon Dioxide 26 mmol/L (22-30); Chloride 105.2 mmol/L (98-107); Cholesterol 81 mg/dL (50-199); Glucose 64 mg/dL (65-100); HDL Cholesterol 21 mg/dL (40-59); Hematocrit 17.3 % (30.3-42.9); Hemoglobin 5.4 gm/dl (10.1-14.3); LDL Cholesterol,Direct 33 mg/dL (50-130); Mean Corpuscular Hemoglobin 24 pg (28-32); Potassium 3.7 mmol/L (3.6-5.0); Sodium 143 mmol/L (137-145); Triglycerides 135 mg/dL (2-149)
[2016-12-03] MEDS: LIORESAL PO SCH (21:59)
[2016-12-03] MEDS: NEURONTIN PO SCH (21:59)
[2016-12-03] MEDS: ULTRAM PO PRN (22:00)
[2016-12-04] MEDS: ZOFRAN IV PRN ×2 (03:30→15:13)
[2016-12-04] MEDS: LIORESAL PO SCH ×3 (08:24→22:53)
[2016-12-04] MEDS: NEURONTIN PO SCH ×3 (08:24→22:54)
[2016-12-04] MEDS ORDERED: D50W (25GM) Syringe IV PRN (10:00)
--- NOTE | 2016-12-04 10:59 | Gastroenterology Consultation ---
History of Present Illness - Reason for Consult Consult date: 12/04/16 occult GI bleeding Requesting physician: BRENT NOVAK - History of Present Illness The patient is a 61 year old female for whom consultation was requested for GI bleeding. She has a long history of iron deficiency anemia which was initially evaluated in 2008 and again in April of this year when she presented with severe anemia. Colonic AVMs were ablated and the UGI tract was normal. The patient was place on Plavix for CAD last January, a 70% lesion. Stent was not placed although discussed. The stent was not placed due to her intermittent GI bleeding and subsequent antiplatelet drug requirements for a least a year.She has been intermittently passing tarry black stools again in the past week and developed chest pain. Hgb was 5.4 on admission. She is now asymptomatic post transfusion and a f/u H&H is ordered. She denies any abdominal pain, nausea or vomiting. Past History Past Medical History: arthritis, CAD, COPD, diabetes, heart failure, hypertension Past Surgical History: hysterectomy, total knee replacement, Other (back) Social history: , smoking Family history: hypertension Medications and Allergies Allergies Allergy/AdvReac Type Severity Reaction Status Date / Time azithromycin Allergy Unknown Verified 01/18/16 20:43 [From Zithromax Z-Ankur] cephalexin monohydrate Allergy Unknown Verified 08/16/16 08:20 [From Keflex] erythromycin base Allergy Unknown Verified 01/18/16 20:43 [From E-Mycin] morphine Allergy Unknown Verified 01/18/16 20:43 oxycodone Allergy Unknown Verified 01/18/16 20:43 oxycodone HCl Allergy Unknown Verified 08/16/16 08:23 [From OxyContin] aspirin AdvReac Bleeding Verified 04/26/16 06:53 codeine AdvReac Nausea Verified 04/26/16 06:53 Penicillins AdvReac Swelling Verified 04/26/16 06:53 antinflamatories Allergy Unknown Uncoded 01/18/16 20:43 Home Medications Medication Instructions Recorded Confirmed Last Taken Type Citalopram [celeXA] 10 mg PO QDAY 01/20/16 12/03/16 12/02/16 14:00 History 10mg Fluticasone [Flonase] 1 spray NS QDAY 01/20/16 12/03/16 12/02/16 21:00 History 1 spray Furosemide [Lasix TAB] 40 mg PO BID 01/20/16 12/03/16 12/03/16 08:00 History 40mg Gabapentin [Neurontin] 400 mg PO TID 01/20/16 12/03/16 12/03/16 08:00 History 400mg Glimepiride [Amaryl] 4 mg PO BID 01/20/16 12/03/16 12/03/16 08:00 History 4mg Insulin Regular, Human [Humulin R 8 - 12 unit SQ AC 01/20/16 12/03/16 12/03/16 08:00 History U-500 Kwikpen] Tramadol HCl [traMADol] 50 mg PO BID 01/20/16 12/03/16 12/03/16 08:00 History 50mg Multivitamin Tab W-MINERAL 1 each PO QDAY #30 tablet 04/27/16 12/03/16 12/03/16 08:00 Rx [Multiple Vitamin/Mineral 1 tab (Theragran M)] Levothyroxine [Synthroid] 100 mcg PO QAM 08/16/16 12/03/16 12/03/16 06:00 History 100mcg Baclofen [Lioresal] 10 mg PO TID #30 tablet 08/18/16 12/03/16 12/03/16 08:00 Rx 10mg Losartan [Cozaar] 50 mg PO QDAY #30 tablet 08/18/16 12/03/16 12/02/16 14:00 Rx 50mg Metoprolol [Lopressor TAB] 25 mg PO BID #60 tablet 08/18/16 12/03/16 12/03/16 08 :00 Rx 25mg ALBUTEROL NEB's [Proventil 0.083% 2.5 mg IH DAILY PRN 08/21/16 12/03/16 22:00 History NEBS] Aspirin EC [Aspirin Enteric Coated 81 mg PO QDAY #30 tablet. 08/21/1612/02/16 21:00 Rx TAB] 81mg Clopidogrel Bisulfate [Plavix] 75 mg PO DAILY #30 tablet 08/21/16 12/03/1612/02 17:00 Rx 75mg ISOSORBIDE MONOnitrate [Imdur ER] 30 mg PO DAILY #30 tab.er.24h 08/21/1612/02/16 08:00 Rx 30mg Ipratropium/Albuter (Nf) 2 puff IH QID PRN 08/21/16 12/03/16 12/02/16 22:00 History [Combivent Inhaler] Pantoprazole [Protonix] 40 mg PO QDAY #30 tablet 08/21/16 12/03/16 12/03/16 08: 00 Rx 40mg traMADol 100 mg PO QHS 12/03/16 12/03/16 12/02/16 21:00 History 100mg Active Meds: Active Medications Acetaminophen (Tylenol) 650 mg PO Q4H PRN PRN Reason: Pain MILD(1-3)/Fever >100.5/LUU Baclofen (Lioresal) 10 mg PO TID [facility] Last Admin: 12/04/16 08:24 Dose: 10 mg Bisacodyl (Dulcolax) 10 mg [place] QDAY PRN PRN Reason: Constipation unrelieved by MOM Dextrose (D50w (25gm) Syringe) 50 ml IV PRN PRN PRN Reason: Hypoglycemia Gabapentin (Neurontin) 400 mg PO TID [facility] Last Admin: 12/04/16 08:24 Dose: 400 mg Glimepiride (Amaryl) 4 mg PO BIDDIAB [facility] Sodium Chloride (Nacl 0.9% 500 Ml) 500 mls @ 42 mls/hr IV ONCE ONE Stop: 12/04/16 11:33 Last Admin: 12/03/16 23:26 Dose: 42 mls/hr Insulin Aspart (Novolog) 0 units SUB-Q QACHS [facility] PRN Reason: Protocol Levothyroxine Sodium (Synthroid) 100 mcg PO DAILY@0600 [facility] Magnesium Hydroxide (Milk Of Magnesia) 30 ml PO Q4H PRN PRN Reason: Constipation Ondansetron HCl (Zofran) 4 mg IV Q8H PRN PRN Reason: N/V unrelieved by Reglan Last Admin: 12/04/16 03:30 Dose: 4 mg Pantoprazole Sodium (Protonix) 40 mg PO QDAY [facility] Sodium Chloride (Sodium Chloride Flush Syringe 10 Ml) 10 ml IV PRN PRN PRN Reason: LINE FLUSH Tramadol HCl (Ultram) 50 mg PO BID PRN PRN Reason: Pain, Moderate (4-6) Last Admin: 12/03/16 22:00 Dose: 50 mg Review of Systems - Review of Systems Constitutional: no weight loss, no weight gain Eyes: no change in vision, no pain Ears, Nose, Throat: no decreased hearing, no difficulty swallowing, no epistaxis , no painful swallowing Breasts: deferred Cardiovascular: no chest pain, no shortness of breath Gastrointestinal: melena, no abdominal pain, no nausea, no vomiting, no diarrhea , no constipation, no hematemesis, no BRBPR, no hematochezia Female Genitourinary: deferred Musculoskeletal: no gait dysfunction, no joint pain, no muscle pain Integumentary: no rash, no pruritis, no jaundice Neurological: no head injury, no paralysis, no weakness Psychiatric: no anxiety, no change in appetite Endocrine: no cold intolerance, no heat intolerance Hematologic/Lymphatic: no easy bruising, no easy bleeding Allergic/Immunologic: no wheezing Exam - Constitutional Vital Signs: Temp Pulse Resp BP Pulse Ox 98.4 F 76 20 127/39 91 12/04/16 08:00 12/04/16 08:00 12/04/16 08:00 12/04/16 08:00 12/04/16 09:33 General appearance: no acute distress, well-nourished - EENT Eyes: PERRL ENT: hearing intact, clear oral mucosa, dentition normal - Neck Neck: supple, normal ROM, no masses or JVD - Respiratory Respiratory effort: normal Respiratory: bilateral: CTA - Breasts Breasts: deferred - Cardiovascular Rhythm: regular Heart Sounds: Present: S1 & S2. Absent: gallop, rub Extremities: pulses intact, No edema, normal color, Full ROM - Gastrointestinal General gastrointestinal: Present: soft, non-tender, non-distended, normal bowel sounds. Absent: hepatomegaly, splenomegaly, mass Rectal Exam: deferred - Genitourinary Female Genitourinary: deferred - Integumentary Integumentary: Present: clear, warm, dry - Neurologic Neurological: alert and oriented x3 - Psychiatric Psychiatric: appropriate mood/affect, intact judgment & insight, memory intact - Labs CBC & Chem 7: 12/03/16 14:20 12/03/16 14:20 Lab Results: Laboratory Results - last 24 hr 12/03/16 12/03/16 12/03/16 14:20 14:20 17:00 WBC 11.0 RBC 2.21 L Hgb 5.4 L* Hct 17.3 L* MCV 78 L MCH 24 L MCHC 31 RDW 15.4 H Plt Count 345 Lymph % (Auto) 15.2 [place] % (Auto) 6.3 Eos % (Auto) 1.2 Baso % (Auto) 0.4 Lymph # 1.7 Haines # 0.7 Eos # 0.1 Baso # 0.0 Seg Neutrophils % 76.9 H Seg Neutrophils # 8.4 H Sodium 143 Potassium 3.7 Chloride 105.2 Carbon Dioxide 26 Anion Gap 16 BUN 25 H Creatinine 0.7 Estimated GFR > 60 BUN/Creatinine Ratio 35.71 Glucose 64 L POC Glucose 47 L Calcium 8.7 Troponin T Triglycerides 135 Cholesterol 81 LDL Cholesterol Direct 33 L HDL Cholesterol 21 L Cholesterol/HDL Ratio 3.85 12/03/16 12/03/16 12/03/16 17:53 18:16 20:05 WBC RBC Hgb Hct MCV MCH MCHC RDW Plt Count Lymph % (Auto) [place] % (Auto) Eos % (Auto) Baso % (Auto) Lymph # [place]aines # Eos # Baso # Seg Neutrophils % Seg Neutrophils # Sodium Potassium Chloride Carbon Dioxide Anion Gap BUN Creatinine Estimated GFR BUN/Creatinine Ratio Glucose POC Glucose 98 Calcium Troponin T 0.020 0.015 Triglycerides Cholesterol LDL Cholesterol Direct HDL Cholesterol Cholesterol/HDL Ratio 12/03/16 20:41 WBC RBC Hgb Hct MCV MCH MCHC RDW Plt Count Lymph % (Auto) [place] % (Auto) Eos % (Auto) Baso % (Auto) Lymph # [place]aines # Eos # Baso # Seg Neutrophils % Seg Neutrophils # Sodium Potassium Chloride Carbon Dioxide Anion Gap BUN Creatinine Estimated GFR BUN/Creatinine Ratio Glucose POC Glucose 178 H Calcium Troponin T Triglycerides Cholesterol LDL Cholesterol Direct HDL Cholesterol Cholesterol/HDL Ratio Assessment and Plan - Patient Problems (1) Blood loss anemia Current Visit: Yes Status: Acute Plan to address problem: S/p transfusion (2) GI bleeding Current Visit: Yes Status: Acute Qualifiers: GI bleed type/associated pathology: G Gastritis type: G Plan to address problem: The likely cause of bleeding is angiodysplasia of the small bowel. She was to have an outpatient pill camera study, but cancelled it due to her personal finances. She had AVMs ablated in the colon in April of this year and a normal upper endoscopy. Advised to reschedule Pill camera study. I have discussed care with cardiology team and they will switch her to ASA instead of Plavix. Double balloon enteroscopy is indicated if the pill camera study reveals AVMs. This will be arranged from my office. IV iron should be considered in the interim. May consider for discharge, possibly today if H&H OK. Thank you for asking us to see her in consultation. (3) CAD (coronary artery disease) Current Visit: No Status: Acute Qualifiers: Coronary Disease-Associated Artery/Lesion type: [place] artery [place] vs. transplanted heart: N Associated angina: with stable angina (4) Diabetes mellitus Current Visit: No Status: Acute Qualifiers: Diabetes mellitus type: type 2 Diabetes mellitus complication status: with circulatory complication Diabetes mellitus complication detail: D Diabetic retinopathy severity: D Proliferative retinopathy type: P Diabetes mellitus macular edema: D Diabetes mellitus emt intermediate insulin use: without senior care use Laterality: L Chronic kidney disease stage: C (5) Chest pain Current Visit: No Status: Chronic Qualifiers: Chest pain type: C Ischemic chest pain type: stable angina pectoris Qualified Code(s): I20.8 - Other forms of angina pectoris
[2016-12-04] MEDS: SYNTHROID PO SCH (11:20)
[2016-12-04] MEDS: AMARYL PO SCH ×2 (11:21→18:24)
[2016-12-04] MEDS: ULTRAM PO PRN (11:21)
[2016-12-04] MEDS: PROTONIX PO SCH (11:21)
[2016-12-04 12:52] LABS: Hematocrit 23.3 % (30.3-42.9); Hemoglobin 7.4 gm/dl (10.1-14.3)
[2016-12-04] MEDS: NOVOLOG SUB-Q SCH ×3 (13:39→22:21)
--- NOTE | 2016-12-04 13:47 | Progress Note ---
Assessment and Plan Assessment and plan: Iron deficiency anemia, secondary to blood loss - Patient was transfused with 2 units of blood - Post transfusion hemoglobin is 7.4 GI bleed - From angiodysplasia, AV malformation - GI consulted, she has been worked up previously and scheduled to have pill endoscopy, but couldn't schedule because of financial issue. - GI recommend to keep the O/P f/u and having the tests done CAD - Cardiology consulted - Patient complains that she has bleeding when she took aspirin DVT prophylaxis - Mechanical Disposition - Continue inpatient care History Interval history: patient was seen and evaluated this morning, she is complaining dark stool. Hospitalist Physical - Physical exam Narrative exam: Not in cardiopulmonary distress. The patient is obese. Vital signs as documented. Head exam is unremarkable. No scleral icterus . Neck is without jugular venous distension, thyromegaly, or carotid bruits. Lungs are clear to auscultation. Cardiac exam reveals regular rate and Rhythm. Abdominal exam reveals normal bowel sounds, no masses. Extremities are nonedematous and both femoral and pedal pulses are normal. [employer]: Alert and oriented 3. No focal weakness. - Constitutional Vitals: Temp Pulse Resp BP Pulse Ox 98.4 F 71 20 127/39 91 12/04/16 08:00 12/04/16 11:00 12/04/16 08:00 12/04/16 08:00 12/04/16 09:33 General appearance: Present: mild distress, obese, disheveled Results - Labs CBC & Chem 7: 12/04/16 09:11 12/03/16 14:20 Labs: Laboratory Last Values WBC 11.0 K/mm3 (4.5-11.0) 12/03/16 14:20 RBC 2.21 M/mm3 (3.65-5.03) L 12/03/16 14:20 Hgb 7.4 gm/dl (10.1-14.3) L 12/04/16 09:11 Hct 23.3 % (30.3-42.9) L D 12/04/16 09:11 MCV 78 fl (79-97) L 12/03/16 14:20 MCH 24 pg (28-32) L 12/03/16 14:20 MCHC 31 % (30-34) 12/03/16 14:20 RDW 15.4 % (13.2-15.2) H 12/03/16 14:20 Plt Count 345 K/mm3 (140-440) 12/03/16 14:20 Lymph % (Auto) 15.2 % (13.4-35.0) 12/03/16 14:20 [place] % (Auto) 6.3 % (0.0-7.3) 12/03/16 14:20 Eos % (Auto) 1.2 % (0.0-4.3) 12/03/16 14:20 Baso % (Auto) 0.4 % (0.0-1.8) 12/03/16 14:20 Lymph # 1.7 K/mm3 (1.2-5.4) 12/03/16 14:20 [place] # 0.7 K/mm3 (0.0-0.8) 12/03/16 14:20 Eos # 0.1 K/mm3 (0.0-0.4) 12/03/16 14:20 Baso # 0.0 K/mm3 (0.0-0.1) 12/03/16 14:20 Seg Neutrophils % 76.9 % (40.0-70.0) H 12/03/16 14:20 Seg Neutrophils # 8.4 K/mm3 (1.8-7.7) H 12/03/16 14:20 PT 15.3 Sec. (12.2-14.9) H 12/03/16 11:51 INR 1.15 (0.87-1.13) H 12/03/16 11:51 APTT 29.3 Sec. (24.2-36.6) 12/03/16 11:51 Sodium 143 mmol/L (137-145) 12/03/16 14:20 Potassium 3.7 mmol/L (3.6-5.0) 12/03/16 14:20 Chloride 105.2 mmol/L (98-107) 12/03/16 14:20 Carbon Dioxide 26 mmol/L (22-30) 12/03/16 14:20 Anion Gap 16 mmol/L 12/03/16 14:20 BUN 25 mg/dL (7-17) H 12/03/16 14:20 Creatinine 0.7 mg/dL (0.7-1.2) 12/03/16 14:20 Estimated GFR > 60 ml/min 12/03/16 14:20 BUN/Creatinine Ratio 35.71 % 12/03/16 14:20 Glucose 64 mg/dL (65-100) L 12/03/16 14:20 POC Glucose 178 (70-105) H 12/03/16 20:41 Calcium 8.7 mg/dL (8.4-10.2) 12/03/16 14:20 Total Bilirubin 0.40 mg/dL (0.1-1.2) 12/03/16 10:58 AST 15 units/L (5-40) 12/03/16 10:58 ALT 11 units/L (7-56) 12/03/16 10:58 Alkaline Phosphatase 92 units/L (35-129) 12/03/16 10:58 Troponin T 0.015 ng/mL (0.00-0.029) 12/03/16 20:05 Total Protein 6.3 g/dL (6.3-8.2) 12/03/16 10:58 Albumin 3.6 g/dL (3.9-5) L 12/03/16 10:58 Albumin/Globulin Ratio 1.3 % 12/03/16 10:58 Triglycerides 135 mg/dL (2-149) 12/03/16 14:20 Cholesterol 81 mg/dL (50-199) 12/03/16 14:20 LDL Cholesterol Direct 33 mg/dL (50-130) L 12/03/16 14:20 HDL Cholesterol 21 mg/dL (40-59) L 12/03/16 14:20 Cholesterol/HDL Ratio 3.85 % 12/03/16 14:20 Urine Color Yellow (Yellow) 12/03/16 11:39 Urine Turbidity Clear (Clear) 12/03/16 11:39 Urine pH 5.0 (5.0-7.0) 12/03/16 11:39 Ur Specific [place] 1.009 (1.003-1.030) 12/03/16 11:39 Urine Protein <15 mg/dl mg/dL (Negative) 12/03/16 11:39 Urine Glucose (UA) Neg mg/dL (Negative) 12/03/16 11:39 Urine Ketones Neg mg/dL (Negative) 12/03/16 11:39 Urine Blood Neg (Negative) 12/03/16 11:39 Urine Nitrite Neg (Negative) 12/03/16 11:39 Urine Bilirubin Neg (Negative) 12/03/16 11:39 Urine Urobilinogen < 2.0 mg/dL (<2.0) 12/03/16 11:39 Ur Leukocyte Esterase Neg (Negative) 12/03/16 11:39 Urine WBC (Auto) 1.0 /HPF (0.0-6.0) 12/03/16 11:39 Urine RBC (Auto) < 1.0 /HPF (0.0-6.0) 12/03/16 11:39 U Epithel Cells (Auto) < 1.0 /HPF (0-13.0) 12/03/16 11:39 Blood Type O POSITIVE 12/03/16 13:30 Antibody Screen Negative 12/03/16 13:30 Crossmatch See Detail 12/03/16 13:30
--- NOTE | 2016-12-04 16:55 | Event Note ---
Date: 12/04/16 Detailed cardiology consultation dictated. A: #1-Symptomatic anemia / GI bleed #2- CAD #3- Chest pain, transient - currently resolved; suspect anginal pain secondary to demand ischemia/severe anemia; ECG with NAF. #4- HTN #5- HLP #6- DM P: no plans for any further cardiac intervention at this time. May d/c plavix from cardiology standpoint. Pt may resume ASA regimen, 81mg daily, from GI standpoint. D/w Dr. Mojica. Will resume ASA 81mg daily. Repeat H/H in AM. Lee LAU NP / DR. EDOUARD
[2016-12-04] MEDS: LOPRESSOR PO SCH (22:54)
[2016-12-05] MEDS: ULTRAM PO PRN ×3 (00:45→17:30)
--- NOTE | 2016-12-05 03:50 | Consultation ---
REQUESTING PHYSICIAN: Dr. Smyth. CONSULTING PHYSICIAN: Dr. Kurtz. HISTORY OF PRESENT ILLNESS: This is a 61-year-old white female, who is now admitted to the hospital with complaints of chest pain and shortness of breath for further evaluation and management. History is obtained from the patient. The patient is known to have coronary artery disease and has had cardiac catheterization and coronary arteriography done in ____ here in this hospital by Dr. Tobias. At that time, the patient was found to have a 70% mid LAD lesion and a 30% OM1 lesion distally. Normal LV. FFR showed no severe stenosis of the LAD. So, the patient was recommended medical treatment. The patient also has multiple other medical problems, including hypertension, diabetes mellitus, and hyperlipidemia. The patient gives a history of smoking and COPD too. She is on supplemental therapy for hypothyroidism. Recently, the patient has been having problems with GI bleeding and she is under the care of a regulatory affairs internship. She had a colonoscopy done and now is scheduled to have pill endoscopy. The patient is complaining of abdominal pain also. Her chest pain is difficult to elicit. She does complain of anterior chest pressure or tightness type of discomfort. No definite radiation to the neck, throat, or arms. She does complain of extreme fatigue and shortness of breath with exertion. There is no orthopnea or PND. She does have some edema of the feet. No palpitations, claudications, dizziness, pain, or syncope. She was also noticing dark tarry stools prior to admission. The patient is extremely anxious and worried about her coronary artery disease. She was on Plavix and aspirin and that had to been discontinued because of the GI bleeding. CURRENT MEDICATIONS: Include Synthroid 100 mcg once daily, Protonix 40 mg daily, glimepiride 4 mg b.i.d., metoprolol 25 mg b.i.d., losartan 50 mg daily, Imdur 30 mg daily, Plavix 75 mg daily, aspirin 81 mg daily, Celexa 10 mg daily, gabapentin ____ mg b.i.d. and albuterol inhalers. She is also on insulin. PAST MEDICAL HISTORY: As noted, coronary artery disease, hypertension, hyperlipidemia, diabetes mellitus, GI bleeding with anemia, history of smoking, and has been a nonalcoholic. MEDICATIONS: As noted. REVIEW OF SYSTEMS: CARDIOVASCULAR: The patient does give a history of chest discomfort and dyspnea. No orthopnea or PND. RESPIRATORY: The patient does have a history of wheezing and asthma. GASTROINTESTINTAL: Abdominal pain and tarry stools as noted. GENITOURINARY: Unremarkable. NEUROLOGIC: Unremarkable. PHYSICAL EXAMINATION: GENERAL: This is a 61-year-old white man, well built, well nourished, in no acute distress at the present time. The patient is conscious, alert, oriented, and afebrile. VITAL SIGNS: Normal, stable. Blood pressure was 124/58. SKIN: Warm and dry. HEENT: Pupils are reactive. NECK: Supple, both ____. No JVD. LUNGS: Fairly clear except for basal rales. No rhonchi. HEART: S1, S2 heard well. Grade 1/6 systolic murmur noted at the aortic area and left sternal border. No diastolic murmur or gallop. ABDOMEN: Soft with some tenderness in the epigastric area. Bowel sounds are heard normal. EXTREMITIES: No edema, no calf tenderness. Good pedal pulse. NEUROLOGIC: Evaluation was within normal limits. RECTAL: Not done at this time. EKG showed a normal sinus rhythm. No acute falls. The patient's chest x-ray was unremarkable. LABORATORY DATA: Showed a hemoglobin of 5.4 with hematocrit of 18. Potassium was 3.7, BUN was 25, creatinine 0.7, and blood sugar at the time of admission was 64. ASSESSMENT AND PLAN: 1. Chest pain, unknown cause, rule out cardiac etiology. 2. Coronary artery disease. 3. Blood loss anemia. 4. History of lower gastrointestinal bleeding. 5. Hypertension. 6. Diabetes mellitus. 7. History of hypothyroidism. This is a 61-year-old female, who is now admitted to the hospital with complaints of chest pain for further evaluation and management as determined. The patient was very severely anemic due to GI bleeding. She had cardiac catheterization and coronary arteriography done in August of this year. At that time, she was noted to have a 70% lesion in the mid LAD; however, the FFR was negative for significant obstructive disease. So the patient was recommended medical therapy. At this point, I would continue to treat medically. We will discontinue the Plavix. We can consider giving her 81-mg aspirin maybe a chewable one for now. I explained this to the patient. I do not see the need for any cardiac intervention at this time. I discussed the case with Dr. Mojica and the regulatory affairs internship also. He is agreeable with that regimen. If she is going to have significant bleeding again with aspirin, then we may have to hold off on that for now. We did not want to consider intervention, but because the patient already has problems with recurrent GI bleeding and then once we do stenting, the patient has to stay on dual-antiplatelet therapy, which is definitely risky in this patient. I tried to explain all of this in detail to the patient. The patient expressed an understanding. We will continue to monitor the patient along with you. ____. Thank you very much for this consultation. We will follow the patient along with you. JOB# [id number] RAJENDRA/THEODORA
[2016-12-05] MEDS: SYNTHROID PO SCH (06:32)
[2016-12-05 07:28] LABS: Anion Gap 14 mmol/L; BUN/Creatinine Ratio 27; Blood Urea Nitrogen 16 mg/dL (7-17); Calcium 8.6 mg/dL (8.4-10.2); Carbon Dioxide 26 mmol/L (22-30); Chloride 105.3 mmol/L (98-107); Glucose 146 mg/dL (65-100); Potassium 4.3 mmol/L (3.6-5.0); Sodium 141 mmol/L (137-145)
[2016-12-05 07:41] LABS: Hematocrit 22.4 % (30.3-42.9)
[2016-12-05] MEDS ORDERED: IMDUR PO SCH (10:00)
[2016-12-05] MEDS ORDERED: COZAAR PO SCH (10:00)
[2016-12-05] MEDS ORDERED: BABY ASPIRIN PO SCH (10:00)
[2016-12-05] MEDS: NOVOLOG SUB-Q SCH ×3 (10:08→18:13)
[2016-12-05] MEDS: PROTONIX PO SCH (10:10)
[2016-12-05] MEDS: AMARYL PO SCH ×2 (10:11→18:14)
[2016-12-05] MEDS: NEURONTIN PO SCH ×2 (10:12→13:44)
[2016-12-05] MEDS: LIORESAL PO SCH ×2 (10:12→13:44)
[2016-12-05] MEDS: LOPRESSOR PO SCH ×2 (10:14→10:26)
[2016-12-05] MEDS: ZOFRAN IV PRN (10:26)
[2016-12-05] MEDS ORDERED: NACL 0.9% 500 ML 500 ML IV NR (10:30)
--- NOTE | 2016-12-05 11:07 | Discharge Summary ---
Providers - Providers Date of Admission: 12/03/16 14:12 Date of discharge: 12/05/16 Attending physician: GERONIMO OMER MD 12/04/16 09:11 Consult to Physician [CONS] Routine Consulting Provider: SURY HUDSON Reason For Exam: GI bleed, severe aanemia Place consult to:: [facility] Notified:: Dr Hudson Was contact made?: Yes Primary care physician: [employer] Hospitalization Reason for admission: chronic anemia, chronic GI bleed, chest pain Condition: Stable Hospital course: 61 YO Female with OA, COPD, Depression, Diastolic CHF, DM, HTN, Nicotine Dependence, CAD GI Bleed S/P Colonoscopy pending outpatient pill endoscopy, presents to ED for evaluation. Pt states that she has experienced pain in her chest over the past week, with worsening symptoms over the past 1 day. Pt states that pain is 7/10, crushing in nature, localized to the left chest, nonradiating, worsened with exertion, unrelieved with rest, intermittent, no associated with shortness of breath, or diaphoresis. Pt also complains of dark tarry stool. Patient was admitted to the floor and she was transfused with 3 units of packed RBC, GI was consulted and Dr Erazo note sated "The likely cause of bleeding is angiodysplasia of the small bowel. She was to have an outpatient pill camera study, but cancelled it due to her personal finances. She had AVMs ablated in the colon in April of this year and a normal upper endoscopy. Advised to reschedule Pill camera study. I have discussed care with cardiology team and they will switch her to ASA instead of Plavix. Double balloon enteroscopy is indicated if the pill camera study reveals AVMs. This will be arranged from my office. IV iron should be considered in the interim." Cardiology was consulted and recommended to continue his current oral medications, DC Plavix and continue aspirin. Patient scheduled cardiology and GI as an outpatient. Patient is scheduled with Dr. Donaldson for possible IV iron therapy. Patient was hemodynamically stable at the time of discharge. Patient's Medications were reviewed and updated at the time of discharge. Disposition: TO HOME OR SELFCARE Time spent for discharge: 31 minutes - Discharge Diagnoses (1) Anemia due to acute blood loss Status: Acute (2) Chest pain Status: Acute Qualifiers: Chest pain type: C Ischemic chest pain type: I (3) GI bleeding Status: Acute Qualifiers: GI bleed type/associated pathology: G Gastritis type: G (4) Chronic pain syndrome Status: Acute Core Measure Documentation - Palliative Care Palliative Care/ Comfort Measures: Not Applicable - Core Measures Any of the following diagnoses?: none Exam - Physical Exam Narrative exam: Not in cardiopulmonary distress. The patient is obese. Vital signs as documented. Head exam is unremarkable. No scleral icterus . Neck is without jugular venous distension, thyromegaly, or carotid bruits. Lungs are clear to auscultation. Cardiac exam reveals regular rate and Rhythm. Abdominal exam reveals normal bowel sounds, no masses. Extremities are nonedematous and both femoral and pedal pulses are normal. [employer]: Alert and oriented 3. No focal weakness. - Constitutional Vitals: Temp Pulse Resp BP Pulse Ox 98.3 F 84 18 149/39 92 12/05/16 08:30 12/05/16 10:26 12/05/16 08:30 12/05/16 10:26 12/05/16 05:48 Plan Activity: no restrictions Weight Bearing Status: Weight Bear as Tolerated Diet: low cholesterol, low salt, diabetic Follow up with: SARAH GONZALEZ MD [Staff Physician] - 7 Days PRIMARY CAREMD [Primary Care Provider] - 3-5 Days SURY HUDSON MD [Staff Physician] - 7 Days AN CORREA DO [Staff Physician] - 3 Days (patient may need IV iron therapy per GI)
--- NOTE | 2016-12-05 12:26 | Progress Note ---
Assessment and Plan Assessment: Symptomatic anemia / GI bleed CAD Chest pain, transient - currently resolved; suspect anginal pain secondary to demand ischemia/severe anemia; ECG with NAF. HTN HLP DM Plan: No plans for any further cardiac intervention at this time. May d/c plavix from cardiology standpoint. Pt may resume ASA regimen, 81mg daily, from GI standpoint. D/w Dr. Mojica. Will resume ASA 81mg daily. Tx PRBC PRN per primary. Currently stable cardiac status. Will see PRN. The patient has been seen in conjunction with Dr. Kurtz who agrees with the assessment and plan of care. Subjective Date of service: 12/05/16 Principal diagnosis: anemia Interval history: Pt resting in bed, c/o fatigue and generalized weakness. VSS. Objective Last Vital Signs Temp 98.3 F 12/05/16 08:30 Pulse 84 12/05/16 10:26 Resp 18 12/05/16 08:30 BP 149/39 12/05/16 10:26 Pulse Ox 92 12/05/16 05:48 - Physical Examination General: Other (pale, fatigued) HEENT: Positive: PERRL Neck: Positive: neck supple, trachea midline Cardiac: Positive: Reg Rate and Rhythm, S1/S2 Lungs: Positive: clear to auscultation Neuro: Positive: Grossly Intact, Cranial Nerve 2-12 Intact Abdomen: Positive: Unremarkable, Soft, Active Bowel Sounds. Negative: Tender Skin: Positive: Clear. Negative: Rash, Wound Musculoskeletal: No Fluid Collection, No Pain, Normal Range of Motion Extremities: Absent: edema - Labs and Meds CBC 12/04/16 12/05/16 Range/Units 09:11 06:53 Hgb 7.4 L 7.0 L (10.1-14.3) gm/dl Hct 23.3 L D 22.4 L (30.3-42.9) % Comprehensive Metabolic Panel 12/05/16 Range/Units 06:53 Sodium 141 (137-145) mmol/L Potassium 4.3 (3.6-5.0) mmol/L Chloride 105.3 (98-107) mmol/L Carbon Dioxide 26 (22-30) mmol/L BUN 16 (7-17) mg/dL Creatinine 0.6 L (0.7-1.2) mg/dL Glucose 146 H (65-100) mg/dL Calcium 8.6 (8.4-10.2) mg/dL - Telemetry EKG Rhythm: Sinus Rhythm
[2016-12-05 20:29] VITALS: BP 159/47
== END 2016-12-05 19:30 | disposition home health service (06) | DRG 378 ==
LOC: ED 10:28 → 4A 14:12
PROVIDERS: ADMIT Internal Medicine; ATTEND Internal Medicine
PROC: 30233N1 Transfusion of Nonautologous Red Blood Cells into Peripheral Vein, Percutaneous Approach (ICD-10-PCS; principal; 2016-12-05)
DX: K55.21 Angiodysplasia of colon with hemorrhage (principal); D62 Acute posthemorrhagic anemia; I25.10 Atherosclerotic heart disease of native coronary artery without angina pectoris; I50.9 Heart failure, unspecified; G89.4 Chronic pain syndrome; Z88.6 Allergy status to analgesic agent; Z88.8 Allergy status to other drugs, medicaments and biological substances; Z79.4 Long term (current) use of insulin; I11.0 Hypertensive heart disease with heart failure; Z90.710 Acquired absence of both cervix and uterus; Z96.659 Presence of unspecified artificial knee joint; J44.9 Chronic obstructive pulmonary disease, unspecified; Z79.82 Long term (current) use of aspirin; F32.9 Major depressive disorder, single episode, unspecified; Z82.49 Family history of ischemic heart disease and other diseases of the circulatory system; F17.200 Nicotine dependence, unspecified, uncomplicated; R07.9 Chest pain, unspecified; E11.9 Type 2 diabetes mellitus without complications
CPT/HCPCS: 36415; 71010; 80048; 80053; 80061; 81001; 82962; 84484; 85014; 85018; 85025; 85610; 85730; 86850; 86900; 86901; 86920; 93005; 93010; 96360; J1815; J2405; J7040; P9016

== ENCOUNTER 2020-02-16 14:24 | Emergency (ER) | payer MEDICARE, SELFPAY ==
[2020-02-16 14:38] VITALS: BP 118/35
--- NOTE | 2020-02-16 15:05 | Event Note ---
ED Screening Note ED Screening Note: pt presents due to being sent by her PCP states that her "potassium was high" +SOB that has been occurring for weeks +cough non productive +CP +diarrhea no n/v no fever +generalized weakness +fatigue PMHx CHF, HTN This initial assessment/diagnostic orders/clinical plan/treatment(s) is/are subject to change based on patients health status, clinical progression and re- assessment by fellow clinical providers in the ED. Further treatment and workup at subsequent clinical providers discretion. Patient/guardian urged not to elope from the ED as their condition may be serious if not clinically assessed and managed. Initial orders include: labs, EKG, CXR
[2020-02-16 15:42] LABS: Basophils % (Auto) 0.4 % (0.0-1.8); Eosinophils # (Auto) 0.2 K/mm3 (0.0-0.4); Eosinophils % (Auto) 1.9 % (0.0-4.3); Hematocrit 33.4 % (30.3-42.9); Hemoglobin 11.6 gm/dl (10.1-14.3); Lymphocytes # (Auto) 1.9 K/mm3 (1.2-5.4); Lymphocytes % (Auto) 19.6 % (13.4-35.0); Mean Corpuscular HGB Conc 35 % (30-34); Mean Corpuscular Volume 87 fl (79-97); Monocytes # (Auto) 0.6 K/mm3 (0.0-0.8); Monocytes % (Auto) 6.5 % (0.0-7.3); Platelet Count 327 K/mm3 (140-440); Red Blood Count 3.84 M/mm3 (3.65-5.03); Red Cell Distribution Width 14.6 % (13.2-15.2)
[2020-02-16 16:07] LABS: INR 1.04 (0.87-1.13)
[2020-02-16 16:08] LABS: Partial Thromboplastin Time 28.6 Sec. (24.2-36.6)
--- NOTE | 2020-02-16 16:09 | XRay Report ---
XR chest routine 2V INDICATION / CLINICAL INFORMATION: Chest Pain. COMPARISON: 12/06/2016. FINDINGS: SUPPORT DEVICES: None. HEART /PULMONARY VASCULATURE: No significant abnormality. LUNGS / PLEURA: No significant pulmonary or pleural abnormality. No pneumothorax. ADDITIONAL FINDINGS: No significant additional findings. IMPRESSION: 1. No acute findings. Signer Name: Sd Melchor MD Signed: 02/16/2020 4:05 PM Workstation Name: [id number]
[2020-02-16 16:16] LABS: Alanine Aminotransferase 14 units/L (7-56); Albumin 4.1 g/dL (3.9-5); BUN/Creatinine Ratio 29; Blood Urea Nitrogen 77 mg/dL (7-17); Calcium 9.6 mg/dL (8.4-10.2); Hemolysis Index 15
== END 2020-02-16 21:26 | disposition left against medical advice (07) ==
LOC: ED 14:24
DX: R79.9 Abnormal finding of blood chemistry, unspecified (principal); Z00.00 Encounter for general adult medical examination without abnormal findings; Z53.21 Procedure and treatment not carried out due to patient leaving prior to being seen by health care provider
CPT/HCPCS: 36415; 71046; 80053; 83735; 84484; 85025; 85610; 85730; 93005

== ENCOUNTER 2020-02-17 16:44 | Observation (INO) | payer MEDICARE ==
[2020-02-17 19:31] LABS: Basophils % (Auto) 0.3 % (0.0-1.8); Eosinophils # (Auto) 0.2 K/mm3 (0.0-0.4); Hematocrit 35.5 % (30.3-42.9); Hemoglobin 11.7 gm/dl (10.1-14.3); Lymphocytes % (Auto) 20.4 % (13.4-35.0); Mean Corpuscular HGB Conc 33 % (30-34); Mean Corpuscular Volume 90 fl (79-97); Monocytes # (Auto) 0.7 K/mm3 (0.0-0.8); Monocytes % (Auto) 7.1 % (0.0-7.3); Platelet Count 353 K/mm3 (140-440); Red Blood Count 3.96 M/mm3 (3.65-5.03); Red Cell Distribution Width 14.6 % (13.2-15.2)
[2020-02-17 19:36] LABS: Albumin 4.2 g/dL (3.9-5); Calcium 10.1 mg/dL (8.4-10.2)
[2020-02-18] MEDS ORDERED: SODIUM CHLORIDE 0.9% 500 ML 500 ML IV ONE (01:59)
[2020-02-18] MEDS ORDERED: FUROSEMIDE 40 MG/4 ML INJ IV ONE (01:59)
[2020-02-18] MEDS ORDERED: ALBUTEROL 2.5 MG/3 ML NEBU IH ONE (01:59)
[2020-02-18] MEDS ORDERED: CALCIUM GLUCONATE 1,000 MG in SODIUM CHLORIDE 0.9% 100 ML IV ONE (01:59)
[2020-02-18] MEDS ORDERED: SODIUM BICARB 8.4% 50 MEQ/50 ML SYRINGE IV ONE (02:00)
[2020-02-18] MEDS ORDERED: DEXTROSE 50% IN WATER (25GM) 50 ML SYRINGE IV ONE (02:12)
[2020-02-18] MEDS ORDERED: INSULIN REGULAR, HUMAN 100 UNIT/ML 3ML VIAL IV ONE (02:12)
[2020-02-18] MEDS ORDERED: SODIUM POLYSTYRENE 15 GM/60 ML ORAL LIQD PO ONE (02:41)
[2020-02-18] MEDS ORDERED: INSULIN REGULAR, HUMAN 100 UNITS/1 ML ONE (02:46)
--- NOTE | 2020-02-18 03:04 | Emergency Department Report ---
ED General Adult HPI - General Chief complaint: Recheck/Abnormal Lab/Rx Stated complaint: HIGH POTTASIUM, KIDNEY, HEART Time Seen by Provider: 02/18/20 01:42 Source: patient Mode of arrival: Ambulatory Limitations: No Limitations - History of Present Illness Initial comments: 64-year-old female with a past medical history of CHF, iron deficiency anemia diabetes, COPD, hypertension, fibromyalgia, and chronic back pain presents to the hospital complaints of abnormal blood work with hyperkalemia. Patient had a outpatient evaluation with her baseball winder Dr. Andrews on February 12 for her chronic iron deficiency anemia. She received a call from the office on the advised her to go to the ER due to hyperkalemia. Patient did attempt to come to the ER on the however, left due to extended wait time. She then spoke to her shipping inspector Dr. Strickland who reviewed ED work-up from the and we advised patient to come to the ER for evaluation and to not leave prior to MD evaluation. Patient does report increased fatigue, dry cough and some mild shortness of breath. No reports of fever, loss of sense of smell or taste. Patient had a negative Covid test on the . Patient is compliant with all her medications including Lasix 40 mg twice daily and denies taking potassium supplements. She denies previous history of renal insufficiency. Patient complains of coccyx pain due to recent coccyx fracture after fall Severity scale (0 -10): 8 - Related Data Home Medications Medication Instructions Recorded Confirmed Last Taken Citalopram [celeXA] 10 mg PO QDAY 01/20/16 12/06/16 12/02/16 14:00 10 mg Fluticasone [Flonase] 1 spray NS QDAY 01/20/16 12/06/16 12/02/16 21:00 1 spray Furosemide [Lasix TAB] 40 mg PO BID 01/20/16 12/06/16 12/03/16 08:00 40 mg Gabapentin 400 mg PO TID 01/20/16 12/06/16 12/03/16 08:00 400 mg Glimepiride [Amaryl] 4 mg PO BID 01/20/16 12/06/16 12/03/16 08:00 4 mg Insulin Regular, Human [Humulin R 8 - 12 unit SQ AC 01/20/16 12/06/16 12/03/16 08:00 U-500 Kwikpen] Tramadol HCl [traMADol] 50 mg PO BID 01/20/16 12/06/16 12/03/16 08:00 50 mg Levothyroxine [Synthroid] 100 mcg PO QAM 08/16/16 12/06/16 12/03/16 06:00 100 mcg ALBUTEROL NEB's [Proventil 0.083% 2.5 mg IH DAILY PRN 08/21/16 12/06/16 12/02/16 22:00 NEBS] Ipratropium/Albuter (Nf) 2 puff IH QID PRN 08/21/16 12/06/16 12/02/16 22:00 [Combivent Inhaler] Cetirizine HCl [ZyrTEC 10mg cap] 10 mg PO QDAY 12/06/16 12/06/16 Unknown Previous Rx's Medication Instructions Recorded Last Taken Type Multivitamin Tab W-MINERAL 1 each PO QDAY #30 tablet 04/27/16 12/03/16 08:00 Rx [Multiple Vitamin/Mineral 1 tab (Theragran M)] Baclofen [Lioresal] 10 mg PO TID #30 tablet 08/18/16 12/03/16 08:00 Rx 10 mg Losartan [Cozaar] 50 mg PO QDAY #30 tablet 08/18/16 12/02/16 14:00 Rx 50 mg Metoprolol [Lopressor TAB] 25 mg PO BID #60 tablet 08/18/16 12/03/16 08:00 Rx 25 mg ISOSORBIDE MONOnitrate [Imdur ER] 30 mg PO DAILY #30 tab.er.24h 08/21/16 12/02/16 08:00 Rx 30 mg Pantoprazole [Protonix TAB] 40 mg PO QDAY #30 tablet 08/21/16 12/03/16 08:00 Rx 40 mg Fluticasone [Flonase] 1 spray NS QDAY 5 Days bottle 12/08/16 Unknown Rx Prednisone [predniSONE 5 mg (6-Day 5 mg PO .TAPER #1 tab.ds.pk 12/08/16 Unknown Rx Pack, 21 Tabs)] levoFLOXacin [Levaquin] 750 mg PO QDAY #4 tablet 12/08/16 Unknown Rx Allergies Allergy/AdvReac Type Severity Reaction Status Date / Time azithromycin Allergy Unknown Verified 01/18/16 20:43 [From Zithromax Z-Ankur] cephalexin monohydrate Allergy Unknown Verified 08/16/16 08:20 [From Keflex] erythromycin base Allergy Unknown Verified 01/18/16 20:43 [From E-Mycin] morphine Allergy Unknown Verified 01/18/16 20:43 oxycodone Allergy Unknown Verified 01/18/16 20:43 oxycodone HCl Allergy Unknown Verified 08/16/16 08:23 [From OxyContin] aspirin AdvReac Bleeding Verified 04/26/16 06:53 codeine AdvReac Nausea Verified 04/26/16 06:53 Penicillins AdvReac Swelling Verified 04/26/16 06:53 antinflamatories Allergy Unknown Uncoded 01/18/16 20:43 ED Review of Systems ROS: Stated complaint: HIGH POTTASIUM, KIDNEY, HEART Other details as noted in HPI Comment: All other systems reviewed and negative ED Past Medical Hx - Past Medical History Hx Hypertension: Yes Hx Congestive Heart Failure: Yes Hx Diabetes: Yes Hx Liver Disease: Yes (enlarged liver) Hx Arthritis: Yes Hx Kidney Stones: Yes Hx Asthma: No Hx COPD: Yes Hx HIV: No Additional medical history: parathyroid probs. chronic back pain. fibroid mylagia. neuropathy. anemia - Surgical History Past Surgical History?: Yes Additional Surgical History: back. hysterectomy. knee replacement right 1997 - Social History Smoking Status: Current Every Day Smoker Substance Use Type: None - Medications Home Medications: Home Medications Medication Instructions Recorded Confirmed Last Taken Type Citalopram [celeXA] 10 mg PO QDAY 01/20/16 12/06/16 12/02/16 14:00 History 10 mg Fluticasone [Flonase] 1 spray NS QDAY 01/20/16 12/06/16 12/02/16 21:00 History 1 spray Furosemide [Lasix TAB] 40 mg PO BID 01/20/16 12/06/16 12/03/16 08:00 History 40 mg Gabapentin 400 mg PO TID 01/20/16 12/06/16 12/03/16 08:00 History 400 mg Glimepiride [Amaryl] 4 mg PO BID 01/20/16 12/06/16 12/03/16 08:00 History 4 mg Insulin Regular, Human [Humulin R 8 - 12 unit SQ AC 01/20/16 12/06/16 12/03/16 08:00 History U-500 Kwikpen] Tramadol HCl [traMADol] 50 mg PO BID 01/20/16 12/06/16 12/03/16 08:00 History 50 mg Multivitamin Tab W-MINERAL 1 each PO QDAY #30 tablet 04/27/16 12/06/16 12/03/16 08:00 Rx [Multiple Vitamin/Mineral 1 tab (Theragran M)] Levothyroxine [Synthroid] 100 mcg PO QAM 08/16/16 12/06/16 12/03/16 06:00 History 100 mcg Baclofen [Lioresal] 10 mg PO TID #30 tablet 08/18/16 12/06/16 12/03/16 08:00 Rx 10 mg Losartan [Cozaar] 50 mg PO QDAY #30 tablet 08/18/16 12/06/16 12/02/16 14:00 Rx 50 mg Metoprolol [Lopressor TAB] 25 mg PO BID #60 tablet 08/18/16 12/06/16 12/03/16 08:00 Rx 25 mg ALBUTEROL NEB's [Proventil 0.083% 2.5 mg IH DAILY PRN 08/21/16 12/06/16 12/02/16 22:00 History NEBS] ISOSORBIDE MONOnitrate [Imdur ER] 30 mg PO DAILY #30 tab.er.24h 08/21/16 12/06/16 12/02/16 08:00 Rx 30 mg Ipratropium/Albuter (Nf) 2 puff IH QID PRN 08/21/16 12/06/16 12/02/16 22:00 History [Combivent Inhaler] Pantoprazole [Protonix TAB] 40 mg PO QDAY #30 tablet 08/21/16 12/06/16 12/03/16 08:00 Rx 40 mg Cetirizine HCl [ZyrTEC 10mg cap] 10 mg PO QDAY 12/06/16 12/06/16 Unknown History Fluticasone [Flonase] 1 spray NS QDAY 5 Days bottle 12/08/16 Unknown Rx Prednisone [predniSONE 5 mg (6-Day 5 mg PO .TAPER #1 tab.ds.pk 12/08/16 Unknown Rx Pack, 21 Tabs)] levoFLOXacin [Levaquin] 750 mg PO QDAY #4 tablet 12/08/16 Unknown Rx ED Physical Exam - General Limitations: No Limitations - Other Other exam information: General: No acute distress Head: Atraumatic Eyes: normal appearance ENT: Moist mucous membranes Neck: Normal appearance, no midline tenderness Chest: Clear to auscultation bilaterally CV: Regular rate and rhythm Abdomen: Soft, normal bowel sounds, nontender, nondistended, no rebound or guarding Back: Normal inspection, coccyx pain Extremity: Trace lower extremity edema, full range of motion Neuro: Alert O x 3, no facial asymmetry, speech clear, no gross motor sensory deficit Psych: Appropriate behavior Skin: No rash ED Course Vital Signs 02/17/20 02/18/20 17:58 02:47 Temperature 98.0 F Pulse Rate 91 H Pulse Rate [ 56 L Bilateral] Respiratory 20 Rate Respiratory 22 Rate [Bilateral ] Blood Pressure 144/36 [Right] O2 Sat by Pulse 98 Oximetry - Consultations Consultation #1: 02/18/20 02: [address] Tanvir Miller tire worker on-call who advises treatment for hyperkalemia, hold IV fluids for now, renal ultrasound, and will consult during admission. ED Medical Decision Making - Lab Data Result diagrams: 02/17/20 18:49 02/17/20 18:49 Lab Results 02/17/20 02/17/20 02/18/20 Range/Units 18:49 18:49 02:09 WBC 9.6 (4.5-11.0) K/mm3 RBC 3.96 (3.65-5.03) M/mm3 Hgb 11.7 (10.1-14.3) gm/dl Hct 35.5 (30.3-42.9) % MCV 90 (79-97) fl MCH 30 (28-32) pg MCHC 33 (30-34) % RDW 14.6 (13.2-15.2) % Plt Count 353 (140-440) K/mm3 Lymph % (Auto) 20.4 (13.4-35.0) % [place] % (Auto) 7.1 (0.0-7.3) % Eos % (Auto) 2.0 (0.0-4.3) % Baso % (Auto) 0.3 (0.0-1.8) % Lymph # (Auto) 2.0 (1.2-5.4) K/mm3 [place] # (Auto) 0.7 (0.0-0.8) K/mm3 Eos # (Auto) 0.2 (0.0-0.4) K/mm3 Baso # (Auto) 0.0 (0.0-0.1) K/mm3 Seg Neutrophils % 70.2 H (40.0-70.0) % Seg Neutrophils # 6.7 (1.8-7.7) K/mm3 Sodium 136 L (137-145) mmol/L Potassium 5.9 H (3.6-5.0) mmol/L Chloride 101.1 (98-107) mmol/L Carbon Dioxide 24 (22-30) mmol/L Anion Gap 17 mmol/L BUN 62 H (7-17) mg/dL Creatinine 1.9 H (0.6-1.2) mg/dL Estimated GFR 27 ml/min BUN/Creatinine Ratio 33 % Glucose 226 H (65-100) mg/dL POC Glucose 229 H (70-105) mg/dL Calcium 10.1 (8.4-10.2) mg/dL Phosphorus 3.10 (2.5-4.5) mg/dL Magnesium 2.00 (1.7-2.3) mg/dL Total Bilirubin 0.20 (0.1-1.2) mg/dL AST 16 (5-40) units/L ALT 15 (7-56) units/L Alkaline Phosphatase 78 (35-129) units/L Total Creatine Kinase 93 (30-135) units/L Total Protein 7.2 (6.3-8.2) g/dL Albumin 4.2 (3.9-5) g/dL Albumin/Globulin Ratio 1.4 % - EKG Data -: EKG Interpreted by Pr EKG shows normal: sinus rhythm, ST-T waves (No peak T waves) Rate: bradycardia (Heart rate 58) - Radiology Data Radiology results: report reviewed XR chest routine 2V INDICATION / CLINICAL INFORMATION: Chest Pain. COMPARISON: 12/06/2016. FINDINGS: SUPPORT DEVICES: None. HEART /PULMONARY VASCULATURE: No significant abnormality. LUNGS / PLEURA: No significant pulmonary or pleural abnormality. No pneumothorax. ADDITIONAL FINDINGS: No significant additional findings. IMPRESSION: 1. No acute findings. - Medical Decision Making 64-year-old female presents with worsening generalized weakness and new onset/newly diagnosed renal sufficiency with associated hyperkalemia. Patient does have a BUN/creatinine ration to suggest dehydration and she is currently on Lasix. Case discussed with tire worker. There are not any peak T waves noted on EKG. hyperkalemia medications ordered. Patient mid to the hospital service telemetry for further evaluation. Case discussed with Dr. Benavides Critical Care Time: No Critical care attestation.: If time is entered above; I have spent that time in minutes in the direct care of this critically ill patient, excluding procedure time. ED Disposition Clinical Impression: Acute renal insufficiency, Hyperkalemia, CHF (congestive heart failure), Generalized weakness, Diabetes mellitus Disposition: 09 OP ADMIT IP TO THIS HOSP Is pt being admited?: Yes Condition: Stable Instructions: Diabetes Mellitus Type 2 in Adults (ED) Time of Disposition: 03:01 (Dr benavides/hospitalist)
[2020-02-18] MEDS ORDERED: DEXTROSE 50% IN WATER (25GM) 50 ML SYRINGE IV PRN (03:46)
--- NOTE | 2020-02-18 05:37 | History and Physical Report ---
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 Patient got to the emergency room and left without being seen because of the long wait however she was advised to go back again by her extrusion die repairer who reviewed her lab results. There was history of dry cough, weakness and shortness of breath, there was no history of fever or chills and no history of body aches, patient had a recent negative Covid 19 test Past History Past Medical History: anemia, arthritis, COPD, diabetes, heart failure, hypertension, other (PARATHYROID DISORDER, CHRONIC BACK PAIN, FIBRIMYALGIA, KIDNEY STONE) Past Surgical History: mastectomy, Other (RIGHT SUKHI SURGERY) Social history: smoking Family history: no significant family history Medications and Allergies Allergies Allergy/AdvReac Type Severity Reaction Status Date / Time azithromycin Allergy Unknown Verified 01/18/16 20:43 [From Zithromax Z-Ankur] cephalexin monohydrate Allergy Unknown Verified 08/16/16 08:20 [From Keflex] erythromycin base Allergy Unknown Verified 01/18/16 20:43 [From E-Mycin] morphine Allergy Unknown Verified 01/18/16 20:43 oxycodone Allergy Unknown Verified 01/18/16 20:43 oxycodone HCl Allergy Unknown Verified 08/16/16 08:23 [From OxyContin] aspirin AdvReac Bleeding Verified 04/26/16 06:53 codeine AdvReac Nausea Verified 04/26/16 06:53 Penicillins AdvReac Swelling Verified 04/26/16 06:53 antinflamatories Allergy Unknown Uncoded 01/18/16 20:43 Home Medications Medication Instructions Recorded Confirmed Last Taken Type Citalopram [celeXA] 40 mg PO QDAY 01/20/16 02/18/20 12/02/16 14:00 History 10 mg Furosemide [Lasix TAB] 40 mg PO BID 01/20/16 02/18/20 12/03/16 08:00 History 40 mg Gabapentin 400 mg PO TID 01/20/16 02/18/20 12/03/16 08:00 History 400 mg Insulin Regular, Human [Humulin R 8 - 12 unit SQ AC 01/20/16 02/18/20 12/03/16 08:00 History U-500 Kwikpen] Tramadol HCl [traMADol] 50 mg PO BID 01/20/16 02/18/20 12/03/16 08:00 History 50 mg Levothyroxine [Synthroid] 100 mcg PO QAM 08/16/16 02/18/20 12/03/16 06:00 History 100 mcg Baclofen [Lioresal] 10 mg PO TID #30 tablet 08/18/16 02/18/20 12/03/16 08:00 Rx 10 mg Losartan [Cozaar] 50 mg PO QDAY #30 tablet 08/18/16 02/18/20 12/02/16 14:00 Rx 50 mg ISOSORBIDE MONOnitrate [Imdur ER] 30 mg PO DAILY #30 tab.er.24h 08/21/16 02/18/20 12/02/16 08:00 Rx 30 mg Ipratropium/Albuter (Nf) 2 puff IH QID PRN 08/21/16 02/18/20 12/02/16 22:00 History [Combivent Inhaler] Pantoprazole [Protonix TAB] 40 mg PO QDAY #30 tablet 08/21/16 02/18/20 12/03/16 08:00 Rx 40 mg Cetirizine HCl [ZyrTEC 10mg cap] 10 mg PO QDAY 12/06/16 02/18/20 Unknown History AtorvaSTATin [Lipitor] 40 mg PO QHS 02/18/20 02/18/20 Unknown History amLODIPine [Norvasc] 5 mg PO DAILY 02/18/20 02/18/20 Unknown History atenoloL [Tenormin] 50 mg PO DAILY 02/18/20 02/18/20 Unknown History buPROPion HCl [Zyban] 150 mg PO Q12H 02/18/20 02/18/20 Unknown History lisinopriL [Zestril TAB] 10 mg PO QDAY 02/18/20 02/18/20 Unknown History Active Meds: Active Medications Dextrose (Dextrose 50% In Water (25gm) 50 Ml Syringe) 0 ml IV Q30MIN PRN; Protocol PRN Reason: Hypoglycemia Heparin Sodium (Porcine) (Heparin 5,000 Unit/1 Ml Vial) 5,000 unit SUB-Q Q12HR JESI Insulin Human Lispro (Insulin Lispro 100 Unit/Ml Vial 3 Ml) 0 unit SUB-Q AC JESI; Protocol Insulin Human Lispro (Insulin Lispro 100 Unit/Ml Vial 3 Ml) 0 unit SUB-Q QHS JESI; Protocol Review of Systems Constitutional: weakness, no fever, no chills, no sweats, no night sweats, no malaise Eyes: bilateral: other (NO BILATERAL EYE SYMPTOMS) Breasts: deferred Cardiovascular: shortness of breath, no chest pain, no orthopnea, no palpitations, no rapid/irregular heart beat, no edema, no syncope, no lightheadedness Respiratory: cough, shortness of breath Gastrointestinal: no nausea, no vomiting, no diarrhea, no constipation, no hematemesis Genitourinary Female: no pelvic pain, no flank pain, no menorrhagia, no Menstruation: postmenopausal Rectal: no pain Musculoskeletal: no neck stiffness, no neck pain, no low back pain, no muscle weakness, no muscle cramps Integumentary: no rash, no pruritis, no redness Neurological: weakness, no paralysis, no tingling, no seizures, no syncope, no tremors, no ataxia, no vertigo, no headaches Psychiatric: no anxiety, no memory loss, no confusion Endocrine: no polyphagia, no polydipsia, no polyuria, no nocturia Hematologic/Lymphatic: no easy bruising, no easy bleeding Exam - Constitutional Vitals: Temp Pulse Resp BP Pulse Ox 97.9 F 72 18 138/47 95 02/18/20 03:44 02/18/20 05:00 02/18/20 05:00 02/18/20 05:00 02/18/20 05:00 General appearance: Present: mild distress - EENT Eyes: Present: PERRL, EOM intact ENT: hearing intact, clear oral mucosa, dentition normal - Neck Neck: Present: supple, normal ROM - Respiratory Respiratory effort: normal - Cardiovascular Rhythm: regular Heart Sounds: Present: S1 & S2. Absent: gallop, systolic murmur, diastolic murmur, click - Extremities Extremities: no ischemia, No edema Peripheral Pulses: within normal limits - Abdominal General gastrointestinal: Present: soft, non-tender, non-distended. Absent: tender, distended, rigid, mass Female genitourinary: Present: deferred - Rectal Rectal Exam: deferred - Integumentary Integumentary: Present: clear, warm, dry. Absent: jaundice - Musculoskeletal Musculoskeletal: generalized weakness - Psychiatric Psychiatric: appropriate mood/affect HEART Score - HEART Score Risk factors: 1-2 risk factors Troponin: < normal limit - Critical Actions Critical Actions: 0-3 pts:0.9-1.7%risk of adverse cardiac event.Candidate for discharge Results - Labs CBC & Chem 7: 02/17/20 18:49 02/17/20 18:49 Labs: Laboratory Last Values WBC 9.6 K/mm3 (4.5-11.0) 02/17/20 18:49 RBC 3.96 M/mm3 (3.65-5.03) 02/17/20 18:49 Hgb 11.7 gm/dl (10.1-14.3) 02/17/20 18:49 Hct 35.5 % (30.3-42.9) 02/17/20 18:49 MCV 90 fl (79-97) 02/17/20 18:49 MCH 30 pg (28-32) 02/17/20 18:49 MCHC 33 % (30-34) 02/17/20 18:49 RDW 14.6 % (13.2-15.2) 02/17/20 18:49 Plt Count 353 K/mm3 (140-440) 02/17/20 18:49 Lymph % (Auto) 20.4 % (13.4-35.0) 02/17/20 18:49 [place] % (Auto) 7.1 % (0.0-7.3) 02/17/20 18:49 Eos % (Auto) 2.0 % (0.0-4.3) 02/17/20 18:49 Baso % (Auto) 0.3 % (0.0-1.8) 02/17/20 18:49 Lymph # (Auto) 2.0 K/mm3 (1.2-5.4) 02/17/20 18:49 [place] # (Auto) 0.7 K/mm3 (0.0-0.8) 02/17/20 18:49 Eos # (Auto) 0.2 K/mm3 (0.0-0.4) 02/17/20 18:49 Baso # (Auto) 0.0 K/mm3 (0.0-0.1) 02/17/20 18:49 Seg Neutrophils % 70.2 % (40.0-70.0) H 02/17/20 18:49 Seg Neutrophils # 6.7 K/mm3 (1.8-7.7) 02/17/20 18:49 Sodium 136 mmol/L (137-145) L 02/17/20 18:49 Potassium 5.9 mmol/L (3.6-5.0) H 02/17/20 18:49 Chloride 101.1 mmol/L (98-107) 02/17/20 18:49 Carbon Dioxide 24 mmol/L (22-30) 02/17/20 18:49 Anion Gap 17 mmol/L 02/17/20 18:49 BUN 62 mg/dL (7-17) H 02/17/20 18:49 Creatinine 1.9 mg/dL (0.6-1.2) H 02/17/20 18:49 Estimated GFR 27 ml/min 02/17/20 18:49 BUN/Creatinine Ratio 33 % 02/17/20 18:49 Glucose 226 mg/dL (65-100) H 02/17/20 18:49 POC Glucose 229 mg/dL (70-105) H 02/18/20 02:09 Calcium 10.1 mg/dL (8.4-10.2) 02/17/20 18:49 Phosphorus 3.10 mg/dL (2.5-4.5) 02/17/20 18:49 Magnesium 2.00 mg/dL (1.7-2.3) 02/17/20 18:49 Total Bilirubin 0.20 mg/dL (0.1-1.2) 02/17/20 18:49 AST 16 units/L (5-40) 02/17/20 18:49 ALT 15 units/L (7-56) 02/17/20 18:49 Alkaline Phosphatase 78 units/L (35-129) 02/17/20 18:49 Total Creatine Kinase 93 units/L (30-135) 02/17/20 18:49 Total Protein 7.2 g/dL (6.3-8.2) 02/17/20 18:49 Albumin 4.2 g/dL (3.9-5) 02/17/20 18:49 Albumin/Globulin Ratio 1.4 % 02/17/20 18:49 Knott/IV: IV Catheter Type [Right INT / Saline Lock Forearm] Assessment and Plan - Patient Problems (1) Acute renal insufficiency Current Visit: Yes Status: Acute Plan to address problem: NEPHROLOGY CONSULT (2) Generalized weakness Current Visit: Yes Status: Acute Plan to address problem: 1. PHYSICAL THERAPY CONSULT (3) Hyperkalemia Current Visit: Yes Status: Acute Plan to address problem: 1. I.V CALCIUM GLUCONATE 2. I.V REGULAR INSULIN 3. I.V DEXTROSE SOLUTION 4 I.V BICARBONATE 5 NEPHROLOGY CONSULT
[2020-02-18 06:52] LABS: Calcium 10.5 mg/dL (8.4-10.2)
[2020-02-18] MEDS ORDERED: INSULIN LISPRO 100 UNIT/ML VIAL 3 mL SUB-Q SCH ×2 (07:30→22:00)
[2020-02-18] MEDS: HEPARIN 5,000 UNIT/1 ML VIAL SUB-Q SCH ×2 (09:25→21:52)
[2020-02-18] MEDS ORDERED: INHA IH PRN (10:05)
[2020-02-18] MEDS ORDERED: IPRATROPIUM IH PRN (10:05)
[2020-02-18] MEDS ORDERED: ALBUTER IH PRN (10:05)
[2020-02-18] MEDS ORDERED: ALBUTEROL 2.5 MG/3 ML NEBU IH PRN (11:00)
[2020-02-18] MEDS ORDERED: [UNRECOGNIZED DRUG - OTHER] SQ SCH (11:30)
[2020-02-18] MEDS ORDERED: INSULN PE SQ SCH (11:30)
[2020-02-18] MEDS ORDERED: INSULIN REGULAR HUMAN 500 UNIT/ML SQ SCH (11:30)
--- NOTE | 2020-02-18 12:20 | Ultrasound Report ---
ULTRASOUND RENAL INDICATION: acute renal failure. COMPARISON: No relevant prior imaging study available. FINDINGS: RIGHT KIDNEY: Size: 9.6 cm. Echogenicity: Normal. Cortical thickness: Normal. Stones: None. Hydronephrosis: None. Cyst or mass: None. LEFT KIDNEY: Size: 11.6 cm. Echogenicity: Normal. Cortical thickness: Normal. Stones: None. Hydronephrosis: None. Cyst or mass: None. Urinary Bladder: No significant abnormality. Free Fluid: None. Additional Findings: None. IMPRESSION 1. No acute sonographic abnormality of the kidneys. Signer Name: Ze Diana MD Signed: 02/18/2020 12:16 PM Workstation Name: [id number]
[2020-02-18] MEDS: traMADol 50 MG TAB PO SCH ×2 (14:18→21:53)
[2020-02-18] MEDS: INSULIN LISPRO 100 UNIT/ML VIAL 3 mL SUB-Q SCH ×3 (14:19→21:54)
[2020-02-18] MEDS: GABAPENTIN 400 MG CAP PO SCH ×2 (14:19→21:54)
[2020-02-18] MEDS: INSULIN REGULAR, HUMAN 100 UNIT/ML 3ML VIAL SUB-Q SCH ×2 (14:20→17:45)
[2020-02-18] MEDS: IPRATROPIUM/ALBUTEROL SULFATE 3 ML AMPUL.NEB IH SCH ×2 (15:01→21:55)
--- NOTE | 2020-02-18 17:56 | Consultation ---
History of Present Illness - Reason for Consult Consult date: 02/18/20 acute renal failure, hyperkalemia - History of Present Illness This is a 64-year-old woman with diabetes mellitus type 2, hypertension, COPD, anemia who was noted to have hyperkalemia on routine lab work and was sent to the emergency department for further management. Due to the long wait time patient left and then presented a day later again. Nephrology was consulted for acute kidney injury and hyperkalemia. Patient denies any recent change in medicines, hospitalizations or procedures. She denies any recent imaging. She denies a diet rich in potassium. She denies NSAID use. Past History Past Medical History: anemia, arthritis, COPD, diabetes, heart failure, hypertension, other (PARATHYROID DISORDER, CHRONIC BACK PAIN, FIBRIMYALGIA, KIDNEY STONE) Past Surgical History: mastectomy, Other (RIGHT SUKHI SURGERY) Social history: smoking Family history: no significant family history Medications and Allergies Allergies Allergy/AdvReac Type Severity Reaction Status Date / Time azithromycin Allergy Unknown Verified 01/18/16 20:43 [From Zithromax Z-Ankur] cephalexin monohydrate Allergy Unknown Verified 08/16/16 08:20 [From Keflex] erythromycin base Allergy Unknown Verified 01/18/16 20:43 [From E-Mycin] morphine Allergy Unknown Verified 01/18/16 20:43 oxycodone Allergy Unknown Verified 01/18/16 20:43 oxycodone HCl Allergy Unknown Verified 08/16/16 08:23 [From OxyContin] aspirin AdvReac Bleeding Verified 04/26/16 06:53 codeine AdvReac Nausea Verified 04/26/16 06:53 Penicillins AdvReac Swelling Verified 04/26/16 06:53 antinflamatories Allergy Unknown Uncoded 01/18/16 20:43 Home Medications Medication Instructions Recorded Confirmed Last Taken Type Citalopram [celeXA] 40 mg PO QDAY 01/20/16 02/18/20 12/02/16 14:00 History 10 mg Furosemide [Lasix TAB] 40 mg PO BID 01/20/16 02/18/20 12/03/16 08:00 History 40 mg Gabapentin 400 mg PO TID 01/20/16 02/18/20 12/03/16 08:00 History 400 mg Insulin Regular, Human [Humulin R 8 - 12 unit SQ AC 01/20/16 02/18/20 12/03/16 08:00 History U-500 Kwikpen] Tramadol HCl [traMADol] 50 mg PO BID 01/20/16 02/18/20 12/03/16 08:00 History 50 mg Levothyroxine [Synthroid] 100 mcg PO QAM 08/16/16 02/18/20 12/03/16 06:00 History 100 mcg Baclofen [Lioresal] 10 mg PO TID #30 tablet 08/18/16 02/18/20 12/03/16 08:00 Rx 10 mg Losartan [Cozaar] 50 mg PO QDAY #30 tablet 08/18/16 02/18/20 12/02/16 14:00 Rx 50 mg ISOSORBIDE MONOnitrate [Imdur ER] 30 mg PO DAILY #30 tab.er.24h 08/21/16 02/18/20 12/02/16 08:00 Rx 30 mg Ipratropium/Albuter (Nf) 2 puff IH QID PRN 08/21/16 02/18/20 12/02/16 22:00 History [Combivent Inhaler] Pantoprazole [Protonix TAB] 40 mg PO QDAY #30 tablet 08/21/16 02/18/20 12/03/16 08:00 Rx 40 mg Cetirizine HCl [ZyrTEC 10mg cap] 10 mg PO QDAY 12/06/16 02/18/20 Unknown History AtorvaSTATin [Lipitor] 40 mg PO QHS 02/18/20 02/18/20 Unknown History amLODIPine [Norvasc] 5 mg PO DAILY 02/18/20 02/18/20 Unknown History atenoloL [Tenormin] 50 mg PO DAILY 02/18/20 02/18/20 Unknown History buPROPion HCl [Zyban] 150 mg PO Q12H 02/18/20 02/18/20 Unknown History lisinopriL [Zestril TAB] 10 mg PO QDAY 02/18/20 02/18/20 Unknown History Active Meds: Active Medications Albuterol (Albuterol 2.5 Mg/3 Ml Nebu) 2.5 mg IH Q3HRT PRN PRN Reason: Shortness Of Breath Albuterol/Ipratropium (Ipratropium/Albuterol Sulfate 3 Ml Ampul.Neb) 1 ampul IH Q6HRT [facility] Last Admin: 02/18/20 15:01 Dose: 1 ampul Documented by: Atorvastatin Calcium (Atorvastatin 40 Mg Tab) 40 mg PO QHS [facility] Citalopram Hydrobromide (Citalopram 20 Mg Tab) 40 mg PO DAILY [facility] Dextrose (Dextrose 50% In Water (25gm) 50 Ml Syringe) 0 ml IV Q30MIN PRN; Protocol PRN Reason: Hypoglycemia Gabapentin (Gabapentin 400 Mg Cap) 400 mg PO TID [facility] Last Admin: 02/18/20 14:19 Dose: 400 mg Documented by: Heparin Sodium (Porcine) (Heparin 5,000 Unit/1 Ml Vial) 5,000 unit SUB-Q Q12HR [facility] Last Admin: 02/18/20 09:25 Dose: Not Given Documented by: Insulin Human Lispro (Insulin Lispro 100 Unit/Ml Vial 3 Ml) 0 unit SUB-Q QACHS [facility]; Protocol Last Admin: 02/18/20 17:44 Dose: 3 unit Documented by: Insulin Human Regular (Insulin Regular, Human 100 Unit/Ml 3ml Vial) 2 unit SUB- Q AC [facility] Last Admin: 02/18/20 17:45 Dose: 2 unit Documented by: Isosorbide Mononitrate (Isosorbide Mononitrate Er 30 Mg Tab) 30 mg PO DAILY [facility] Last Admin: 02/18/20 14:19 Dose: 30 mg Documented by: Levothyroxine Sodium (Levothyroxine 100 Mcg Tab) 100 mcg PO 0600 [facility] Pantoprazole Sodium (Pantoprazole 40 Mg Tab) 40 mg PO QDAC [facility] Tramadol HCl (Tramadol 50 Mg Tab) 50 mg PO BID [facility] Last Admin: 02/18/20 14:18 Dose: 50 mg Documented by: Review of Systems Constitutional: fatigue Eyes: right: other (Denies blurred vision and irritation) Ears, nose, mouth and throat: other (Denies nasal congestion, discharge) Breasts: other Cardiovascular: shortness of breath, other (Denies chest pain ) Respiratory: other (Denies cough and hemoptysis) Gastrointestinal: other (Denies nausea and vomiting) Musculoskeletal: other (Denies back pain and muscle cramps) Integumentary: other (Denies rash and pruritus) Neurological: other (Denies confusion and paresthesia) Psychiatric: other (No hallucination or disorientation) Endocrine: other (No weight change or palpitations) Allergic/Immunologic: other (No rash or wheezing) Exam - Vital Signs Vital signs: Vital Signs Temp Pulse Resp BP Pulse Ox 98.0 F 91 H 20 144/36 98 02/17/20 17:58 02/17/20 17:58 02/17/20 17:58 02/17/20 17:58 02/17/20 17:58 - Physical Exam Narrative exam: Constitutional: no acute distress Head: NC/AT Neck: supple Lungs: clear to auscultation CV: RRR, no M/R/G Abdomen: soft, non-tender, bowel sounds present Back: nontender Extremities: trace edema, pulses WNL Skin: intact Neuro: no focal deficits, alert and oriented x4 Results - Lab Results 02/17/20 18:49 02/18/20 06:14 Most recent lab results Calcium 10.5 mg/dL (8.4-10.2) H 02/18/20 06:14 Phosphorus 3.10 mg/dL (2.5-4.5) 02/17/20 18:49 Magnesium 2.00 mg/dL (1.7-2.3) 02/17/20 18:49 Assessment and Plan Assessment * Acute kidney injury. Baseline creatinine unknown. * Hyperkalemia * Hypercalcemia * Iron deficiency anemia * Hypertension * Heart failure Recommendations * Risk factors for kidney disease include heart failure and hypertension. * Maintain euvolemia * Goal blood pressures less than 140/90 * She received Kayexalate overnight along with Lasix and repeat potassium was within goal range * Continue diuresis, can transition to oral dosing * Check PTH and vitamin D * Educated regarding low potassium diet * Renally dose medications * Avoid nephrotoxins * Follow-up renal ultrasound
--- NOTE | 2020-02-18 18:19 | Event Note ---
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 follow BMP, k level normal today, Cr improved patient has no acute issue nephrology following if clinically stable and Cr cont to improve possible d/c in the am
[2020-02-19] MEDS: IPRATROPIUM/ALBUTEROL SULFATE 3 ML AMPUL.NEB IH SCH ×3 (05:24→13:29)
[2020-02-19] MEDS ORDERED: LEVOTHYROXINE 100 MCG TAB PO SCH (06:00)
[2020-02-19 06:52] LABS: BUN/Creatinine Ratio 36; Blood Urea Nitrogen 32 mg/dL (7-17); Calcium 10.4 mg/dL (8.4-10.2); Hemolysis Index 10
[2020-02-19] MEDS ORDERED: PANTOPRAZOLE 40 MG TAB PO SCH (07:30)
[2020-02-19] MEDS: INSULIN LISPRO 100 UNIT/ML VIAL 3 mL SUB-Q SCH ×2 (08:41→12:24)
[2020-02-19] MEDS: INSULIN REGULAR, HUMAN 100 UNIT/ML 3ML VIAL SUB-Q SCH ×2 (08:44→12:24)
[2020-02-19] MEDS: GABAPENTIN 400 MG CAP PO SCH (08:45)
[2020-02-19] MEDS ORDERED: CITALOPRAM 20 MG TAB PO SCH (10:00)
[2020-02-19] MEDS ORDERED: CITALOPRAM 10 MG TAB PO SCH (10:00)
[2020-02-19] MEDS: traMADol 50 MG TAB PO SCH (10:40)
[2020-02-19] MEDS: HEPARIN 5,000 UNIT/1 ML VIAL SUB-Q SCH (10:43)
[2020-02-19 12:30] VITALS: BP 151/52
--- NOTE | 2020-02-19 13:03 | Discharge Summary ---
Providers - Providers Date of Admission: 02/18/20 03:08 Date of discharge: 02/19/20 Attending physician: JOBY FROST 02/18/20 03:01 Consult to Physician [CONS] Urgent Comment: Dr. Mahajan spoke with Dr. Miller @ 0236 Consulting Provider: NOELLE MILLER Physician Instructions: Reason For Exam: acute renal insuf, hyperkalemia 02/18/20 10:27 Physical Therapy Evaluation and Treat [CONS] Routine Comment: Reason For Exam: placement Primary care physician: BECKA RECINOS Hospitalization Condition: Good Hospital course: 64-year-old female presented from primary care physician's office for hyperkalemia at 5.9. Patient was asymptomatic no heart arrhythmias. No fatigue no fever. Patient was treated with Kayexalate and IV resuscitation and potassium came back the next day to 4. Normal. Stable for discharge no symptoms. Disposition: TO HOME OR SELFCARE Core Measure Documentation - Palliative Care Palliative Care/ Comfort Measures: Not Applicable - Core Measures Any of the following diagnoses?: none Exam - Constitutional Vitals: Temp Pulse Resp BP Pulse Ox 98.0 F 85 18 151/52 93 02/19/20 11:35 02/19/20 12:00 02/19/20 11:35 02/19/20 11:35 02/19/20 11:35 General appearance: Present: no acute distress, well-nourished - EENT Eyes: Present: PERRL ENT: hearing intact, clear oral mucosa - Neck Neck: Present: supple, normal ROM - Respiratory Respiratory effort: normal Respiratory: bilateral: CTA - Cardiovascular Heart Sounds: Present: S1 & S2. Absent: rub, click - Extremities Extremities: pulses symmetrical, No edema Peripheral Pulses: within normal limits - Abdominal General gastrointestinal: Present: soft, non-tender, non-distended, normal bowel sounds Female genitourinary: Present: normal - Integumentary Integumentary: Present: clear, warm, dry - Musculoskeletal Musculoskeletal: strength equal bilaterally, other (Fall precautions because of pleuritic pain patient does not get around as well because of arthritis.) - Psychiatric Psychiatric: appropriate mood/affect, intact judgment & insight - Neurologic Neurologic: CNII-XII intact, moves all extremities Plan Activity: fall precautions Weight Bearing Status: Full Weight Bearing Diet: low fat, low cholesterol Follow up with: BECKA RECINOS MD [Primary Care Provider] - 3-5 Days
--- NOTE | 2020-02-19 13:36 | Progress Note ---
Assessment and Plan Assessment * Acute kidney injury. Baseline creatinine unknown. * Hyperkalemia * Hypercalcemia * Iron deficiency anemia * Hypertension * Heart failure * Hyperparathyroidism, mild Recommendations * Risk factors for kidney disease include heart failure and hypertension. * Maintain euvolemia * Goal blood pressures less than 140/90 * S/p Kayexalate and Lasix, now with potassium within goal range * Continue oral diuresis * Asymmetrical kidney size noted. However given there would be no indication for intervention if patient did have renal vascular disease will avoid further w/u/imaging. * F/u vitamin D * Low potassium diet * Renally dose medications * Avoid nephrotoxins Subjective Date of service: 02/19/20 Principal diagnosis: Hyperkalemia Interval history: Vitals, input and output and interdisciplinary notes reviewed Notes good urine output Objective - Exam Narrative Exam: Constitutional: no acute distress Head: NC/AT Neck: supple Lungs: clear to auscultation CV: RRR, no M/R/G Abdomen: soft, non-tender, bowel sounds present Back: nontender Extremities: trace edema, pulses WNL Skin: intact Neuro: no focal deficits, alert and oriented x4 - Vital Signs Vital signs: Vital Signs - 12hr 02/19/20 02/19/20 02/19/20 03:02 04:15 08:22 Temperature 99.0 F 98.6 F Pulse Rate 87 92 H 85 Respiratory 16 18 Rate Blood Pressure 149/34 151/46 O2 Sat by Pulse 93 91 Oximetry 02/19/20 02/19/20 11:35 12:00 Temperature 98.0 F Pulse Rate 94 H 85 Respiratory 18 Rate Blood Pressure 151/52 O2 Sat by Pulse 93 Oximetry - Lab 02/17/20 18:49 02/19/20 05:13 Most recent lab results Calcium 10.4 mg/dL (8.4-10.2) H 02/19/20 05:13 Phosphorus 3.10 mg/dL (2.5-4.5) 02/17/20 18:49 Magnesium 2.00 mg/dL (1.7-2.3) 02/17/20 18:49 Medications & Allergies - Medications Allergies/Adverse Reactions: Allergies azithromycin [From Zithromax Z-Ankur] Allergy (Verified 01/18/16 20:43) Unknown cephalexin monohydrate [From Keflex] Allergy (Verified 08/16/16 08:20) Unknown erythromycin base [From E-Mycin] Allergy (Verified 01/18/16 20:43) Unknown morphine Allergy (Verified 01/18/16 20:43) Unknown oxycodone Allergy (Verified 01/18/16 20:43) Unknown oxycodone HCl [From OxyContin] Allergy (Verified 08/16/16 08:23) Unknown aspirin Adverse Reaction (Verified 04/26/16 06:53) Bleeding codeine Adverse Reaction (Verified 04/26/16 06:53) Nausea Penicillins Adverse Reaction (Verified 04/26/16 06:53) Swelling antinflamatories Allergy (Uncoded 01/18/16 20:43) Unknown Home Medications: Home Medications Medication Instructions Recorded Confirmed Last Taken Type Citalopram [celeXA] 40 mg PO QDAY 01/20/16 02/18/20 12/02/16 14:00 History 10 mg Furosemide [Lasix TAB] 40 mg PO BID 01/20/16 02/18/20 12/03/16 08:00 History 40 mg Gabapentin 400 mg PO TID 01/20/16 02/18/20 12/03/16 08:00 History 400 mg Insulin Regular, Human [Humulin R 8 - 12 unit SQ AC 01/20/16 02/18/20 12/03/16 08:00 History U-500 Kwikpen] Tramadol HCl [traMADol] 50 mg PO BID 01/20/16 02/18/20 12/03/16 08:00 History 50 mg Levothyroxine [Synthroid] 100 mcg PO QAM 08/16/16 02/18/20 12/03/16 06:00 History 100 mcg Baclofen [Lioresal] 10 mg PO TID #30 tablet 08/18/16 02/18/20 12/03/16 08:00 Rx 10 mg Losartan [Cozaar] 50 mg PO QDAY #30 tablet 08/18/16 02/18/20 12/02/16 14:00 Rx 50 mg ISOSORBIDE MONOnitrate [Imdur ER] 30 mg PO DAILY #30 tab.er.24h 08/21/16 02/18/20 12/02/16 08:00 Rx 30 mg Ipratropium/Albuter (Nf) 2 puff IH QID PRN 08/21/16 02/18/2012/02/17 22:00 History [Combivent Inhaler] Pantoprazole [Protonix TAB] 40 mg PO QDAY #30 tablet 08/21/16 02/18/20 12/03/16 08:00 Rx 40 mg Cetirizine HCl [ZyrTEC 10mg cap] 10 mg PO QDAY 12/06/16 02/18/20 Unknown History AtorvaSTATin [Lipitor] 40 mg PO QHS 02/18/20 02/18/20 Unknown History amLODIPine 5 mg PO DAILY 02/18/20 02/18/20 Unknown History atenoloL [Tenormin] 50 mg PO DAILY 02/18/20 02/18/20 Unknown History buPROPion HCl [Zyban] 150 mg PO Q12H 02/18/20 02/18/20 Unknown History Citalopram [Celexa] 40 mg PO DAILY tablet 02/19/20 Unknown Rx Active Medications: Generic Name Dose Route Start Last Admin Trade Name Freq PRN Reason Stop Dose Admin Albuterol 2.5 mg 02/18/20 11:00 Albuterol 2.5 Mg/3 Ml Nebu IH Q3HRT PRN Shortness Of Breath Albuterol/Ipratropium 1 ampul 02/18/20 14:00 02/19/20 08:14 Ipratropium/Albuterol Sulfate 3 Ml Ampul.Neb IH Not Given Q6HRT JESI Atorvastatin Calcium 40 mg 02/18/20 22:00 02/18/20 21:54 Atorvastatin 40 Mg Tab PO 40 mg QHS JESI Administration Citalopram Hydrobromide 40 mg 02/19/20 10:00 02/19/20 10:40 Citalopram 20 Mg Tab PO 40 mg DAILY JESI Administration Dextrose 0 ml 02/18/20 03:46 Dextrose 50% In Water (25gm) 50 Ml Syringe IV Q30MIN PRN Hypoglycemia Protocol Gabapentin 400 mg 02/18/20 14:00 02/19/20 08:45 Gabapentin 400 Mg Cap PO 400 mg TID JESI Administration Heparin Sodium (Porcine) 5,000 unit 02/18/20 10:00 02/19/20 10:43 Heparin 5,000 Unit/1 Ml Vial SUB-Q Not Given Q12HR [facility] Insulin Human Lispro 0 unit 02/18/20 11:30 02/19/20 12:24 Insulin Lispro 100 Unit/Ml Vial 3 Ml SUB-Q 2 unit QACHS JESI Administration Protocol Insulin Human Regular 2 unit 02/18/20 11:30 02/19/20 12:24 Insulin Regular, Human 100 Unit/Ml 3ml Vial SUB-Q 2 unit AC JESI Administration Isosorbide Mononitrate 30 mg 02/18/20 11:00 02/19/20 10:40 Isosorbide Mononitrate Er 30 Mg Tab PO 30 mg DAILY JESI Administration Levothyroxine Sodium 100 mcg 02/19/20 06:00 02/19/20 07:01 Levothyroxine 100 Mcg Tab PO 100 mcg 0600 JESI Administration Pantoprazole Sodium 40 mg 02/19/20 07:30 02/19/20 08:45 Pantoprazole 40 Mg Tab PO 40 mg QDAC JESI Administration Tramadol HCl 50 mg 02/18/20 11:00 02/19/20 10:40 Tramadol 50 Mg Tab PO 50 mg BID JESI Administration
[2020-02-23 13:50] LABS: Vitamin D, 25-OH, D2 <4 ng/mL
== END 2020-02-19 16:27 | disposition home or self-care (01) ==
LOC: ED 16:44 → 4A 02-18 03:08
PROVIDERS: ADMIT Internal Medicine; ATTEND Internal Medicine
DX: I11.0 Hypertensive heart disease with heart failure (principal); I50.9 Heart failure, unspecified; N17.9 Acute kidney failure, unspecified; E83.52 Hypercalcemia; D50.0 Iron deficiency anemia secondary to blood loss (chronic); E11.9 Type 2 diabetes mellitus without complications; N28.9 Disorder of kidney and ureter, unspecified; R53.1 Weakness; E87.5 Hyperkalemia; D64.9 Anemia, unspecified; M19.90 Unspecified osteoarthritis, unspecified site; J44.9 Chronic obstructive pulmonary disease, unspecified; M54.9 Dorsalgia, unspecified; G89.29 Other chronic pain; R16.0 Hepatomegaly, not elsewhere classified; F17.200 Nicotine dependence, unspecified, uncomplicated; Z98.890 Other specified postprocedural states; Z79.4 Long term (current) use of insulin; Z87.442 Personal history of urinary calculi; Z90.710 Acquired absence of both cervix and uterus; Z96.651 Presence of right artificial knee joint
CPT/HCPCS: 36415; 76770; 80048; 80053; 82306; 82550; 82962; 83735; 83970; 84100; 85025; 93005; 94640; 96374; 96375; 97162; 99285; A9270; G0378; J0610; J1940; 94644; J1815

== ENCOUNTER 2021-09-23 00:37 | Emergency (ER) | payer MEDICARE ==
[2021-09-23] MEDS ORDERED: IPRATROPIUM 0.02% NEBU 2.5 ML IH ONE (05:10)
[2021-09-23] MEDS ORDERED: ALBUTEROL 2.5 MG/3 ML NEBU IH ONE (05:10)
--- NOTE | 2021-09-23 05:10 | Event Note ---
Date: 09/23/21 Medical screening examination note: 66-year-old female with a history of "low iron", CHF and COPD, presenting with cough, wheezing, shortness of breath, and lower extremity swelling. Patient has obvious lower extremity edema. Place patient on videotape operator, obtain EKG, chest x-ray, appropriate laboratory studies. Detailed history and physical to be performed by oncoming provider. Patient is awake and breathing spontaneously. She is protecting her airway. Vital Signs 09/23/21 01:35 Temperature 98.4 F Pulse Rate 65 Respiratory 18 Rate Blood Pressure 172/61 O2 Sat by Pulse 92 Oximetry
--- NOTE | 2021-09-23 05:49 | XRay Report ---
CHEST 1 VIEW INDICATION / CLINICAL INFORMATION: Dyspnea. COMPARISON: Chest x-ray 02/16/2020 FINDINGS: SUPPORT DEVICES: None. HEART / MEDIASTINUM: Heart size is within normal limits. Mediastinal contour demonstrates no signific ant abnormality. LUNGS / PLEURA: Mildly prominent interstitium. BONES: No significant osseous abnormality. ADDITIONAL FINDINGS: No significant additional findings. IMPRESSION: 1. Mild interstitial pulmonary edema not excluded. Signer Name: Kings Ruiz II, MD Signed: 09/23/2021 5:44 AM Workstation Name: [id number]
[2021-09-23 05:55] LABS: Basophils # (Auto) 0.1 K/mm3 (0.0-0.1); Basophils % (Auto) 0.6 % (0.0-1.8); Eosinophils # (Auto) 0.2 K/mm3 (0.0-0.4); Eosinophils % (Auto) 2.8 % (0.0-4.3); Hematocrit 34.6 % (30.3-42.9); Hemoglobin 11.6 gm/dl (10.1-14.3); Lymphocytes # (Auto) 1.8 K/mm3 (1.2-5.4); Lymphocytes % (Auto) 20.5 % (13.4-35.0); Mean Corpuscular HGB Conc 33 % (30-34); Mean Corpuscular Volume 83 fl (79-97); Monocytes # (Auto) 0.6 K/mm3 (0.0-0.8); Monocytes % (Auto) 7.3 % (0.0-7.3); Platelet Count 298 K/mm3 (140-440); Red Blood Count 4.19 M/mm3 (3.65-5.03); Red Cell Distribution Width 15.1 % (13.2-15.2)
[2021-09-23 06:02] LABS: INR 0.98 (0.87-1.13)
[2021-09-23 06:16] LABS: Alanine Aminotransferase 13 units/L (7-56); Albumin 3.8 g/dL (3.9-5); BUN/Creatinine Ratio 20; Blood Urea Nitrogen 18 mg/dL (7-17); Calcium 9.1 mg/dL (8.4-10.2); Hemolysis Index 4
[2021-09-23] MEDS ORDERED: FUROSEMIDE 40 MG/4 ML INJ IV ONE (06:24)
--- NOTE | 2021-09-23 08:34 | Emergency Department Report ---
ED General Adult HPI - General Chief complaint: Extremity Problem,Nontraumatic Stated complaint: HEART INTERNAL BLEEDING PUI?: No Time Seen by Provider: 09/23/21 06:16 Source: patient Mode of arrival: Ambulatory Limitations: No Limitations - History of Present Illness Initial comments: PT REPORTS FEET AND LEGS SWOLLEN X 1 WEEK, PMH CHF, DM, AND COPD. -: Gradual, days(s) Radiation: non-radiation Severity scale (0 -10): 0 Worsens with: none Associated Symptoms: denies: denies other symptoms, confusion, chest pain - Related Data Home Medications Medication Instructions Recorded Confirmed Last Taken Citalopram [celeXA] 40 mg PO QDAY 01/20/16 02/18/20 12/02/16 14:00 10 mg Furosemide [Lasix TAB] 40 mg PO BID 01/20/16 02/18/20 12/03/16 08:00 40 mg Gabapentin 400 mg PO TID 01/20/16 02/18/20 12/03/16 08:00 400 mg Insulin Regular, Human (Nf) 8 - 12 unit SQ AC 01/20/16 02/18/20 12/03/16 08:00 [HUMULIN R 500 units/mL (NF)] Tramadol HCl [traMADol] 50 mg PO BID 01/20/16 02/18/20 12/03/16 08:00 50 mg Levothyroxine [Synthroid] 100 mcg PO QAM 08/16/16 02/18/20 12/03/16 06:00 100 mcg Ipratropium/Albuter (Nf) 2 puff IH QID PRN 08/21/16 02/18/20 12/02/16 22:00 [Combivent Inhaler] Cetirizine HCl [ZyrTEC 10mg cap] 10 mg PO QDAY 12/06/16 02/18/20 Unknown AtorvaSTATin [Lipitor] 40 mg PO QHS 02/18/20 02/18/20 Unknown amLODIPine 5 mg PO DAILY 02/18/20 02/18/20 Unknown atenoloL [Tenormin] 50 mg PO DAILY 02/18/20 02/18/20 Unknown buPROPion HCl [Zyban] 150 mg PO Q12H 02/18/20 02/18/20 Unknown Previous Rx's Medication Instructions Recorded Last Taken Type Baclofen [Lioresal] 10 mg PO TID #30 tablet 08/18/16 12/03/16 08:00 Rx 10 mg Losartan [Cozaar] 50 mg PO QDAY #30 tablet 08/18/16 12/02/16 14:00 Rx 50 mg ISOSORBIDE MONOnitrate [Imdur ER] 30 mg PO DAILY #30 tab.er.24h 08/21/16 12/02/16 08:00 Rx 30 mg Pantoprazole [Protonix TAB] 40 mg PO QDAY #30 tablet 08/21/16 12/03/16 08:00 Rx 40 mg Citalopram [Celexa] 40 mg PO DAILY tablet 02/19/20 Unknown Rx Allergies Allergy/AdvReac Type Severity Reaction Status Date / Time azithromycin Allergy Unknown Verified 01/18/16 20:43 [From Zithromax Z-Ankur] cephalexin monohydrate Allergy Unknown Verified 08/16/16 08:20 [From Keflex] erythromycin base Allergy Unknown Verified 01/18/16 20:43 [From E-Mycin] morphine Allergy Unknown Verified 01/18/16 20:43 oxycodone Allergy Unknown Verified 01/18/16 20:43 oxycodone HCl Allergy Unknown Verified 08/16/16 08:23 [From OxyContin] aspirin AdvReac Bleeding Verified 04/26/16 06:53 codeine AdvReac Nausea Verified 04/26/16 06:53 Penicillins AdvReac Swelling Verified 04/26/16 06:53 antinflamatories Allergy Unknown Uncoded 01/18/16 20:43 ED Review of Systems ROS: Stated complaint: HEART INTERNAL BLEEDING Other details as noted in HPI Constitutional: denies: chills, fever Eyes: denies: eye pain, eye discharge, vision change ENT: denies: ear pain, throat pain Respiratory: denies: cough, shortness of breath, wheezing Cardiovascular: denies: chest pain, palpitations Endocrine: no symptoms reported Gastrointestinal: denies: abdominal pain, nausea, diarrhea Genitourinary: denies: urgency, dysuria, discharge Musculoskeletal: denies: back pain, joint swelling, arthralgia Skin: denies: rash, lesions Neurological: denies: headache, weakness, paresthesias Psychiatric: denies: anxiety, depression Hematological/Lymphatic: denies: easy bleeding, easy bruising ED Past Medical Hx - Past Medical History Previous Medical History?: Yes Hx Hypertension: Yes Hx CVA: No Hx Heart Attack/AMI: No Hx Congestive Heart Failure: Yes Hx Diabetes: Yes Hx Deep Vein Thrombosis: No Hx Pulmonary Embolism: No Hx GERD: No Hx Liver Disease: Yes (enlarged liver) Hx Renal Disease: No Hx of Cancer: No Hx Sickle Cell Disease: No Hx Arthritis: Yes Hx Headaches / Migraines: No Hx Seizures: No Hx Kidney Stones: Yes Hx Psychiatric Treatment: No Hx Asthma: No Hx COPD: Yes Hx Tuberculosis: No Hx Dementia: No Hx HIV: No Additional medical history: parathyroid probs. chronic back pain. fibroid mylagia. neuropathy. anemia - Surgical History Past Surgical History?: Yes Hx Coronary Stent: No Hx Open Heart Surgery: No Hx Pacemaker: No Hx Internal Defibrillator: No Hx Cholecystectomy: No Hx Appendectomy: No Hx Breast Surgery: No Additional Surgical History: back. hysterectomy. knee replacement right 1997 - Social History Smoking Status: Current Every Day Smoker Substance Use Type: None - Medications Home Medications: Home Medications Medication Instructions Recorded Confirmed Last Taken Type Citalopram [celeXA] 40 mg PO QDAY 01/20/16 02/18/20 12/02/16 14:00 History 10 mg Furosemide [Lasix TAB] 40 mg PO BID 01/20/16 02/18/20 12/03/16 08:00 History 40 mg Gabapentin 400 mg PO TID 01/20/16 02/18/20 12/03/16 08:00 History 400 mg Insulin Regular, Human (Nf) 8 - 12 unit SQ AC 01/20/16 02/18/20 12/03/16 08:00 History [HUMULIN R 500 units/mL (NF)] Tramadol HCl [traMADol] 50 mg PO BID 01/20/16 02/18/20 12/03/16 08:00 History 50 mg Levothyroxine [Synthroid] 100 mcg PO QAM 08/16/16 02/18/20 12/03/16 06:00 History 100 mcg Baclofen [Lioresal] 10 mg PO TID #30 tablet 08/18/16 02/18/20 12/03/16 08:00 Rx 10 mg Losartan [Cozaar] 50 mg PO QDAY #30 tablet 08/18/16 02/18/20 12/02/16 14:00 Rx 50 mg ISOSORBIDE MONOnitrate [Imdur ER] 30 mg PO DAILY #30 tab.er.24h 08/21/16 02/18/20 12/02/16 08:00 Rx 30 mg Ipratropium/Albuter (Nf) 2 puff IH QID PRN 08/21/16 02/18/20 12/02/16 22:00 History [Combivent Inhaler] Pantoprazole [Protonix TAB] 40 mg PO QDAY #30 tablet 08/21/16 02/18/20 12/03/16 08:00 Rx 40 mg Cetirizine HCl [ZyrTEC 10mg cap] 10 mg PO QDAY 12/06/16 02/18/20 Unknown History AtorvaSTATin [Lipitor] 40 mg PO QHS 02/18/20 02/18/20 Unknown History amLODIPine 5 mg PO DAILY 02/18/20 02/18/20 Unknown History atenoloL [Tenormin] 50 mg PO DAILY 02/18/20 02/18/20 Unknown History buPROPion HCl [Zyban] 150 mg PO Q12H 02/18/20 02/18/20 Unknown History Citalopram [Celexa] 40 mg PO DAILY tablet 02/19/20 Unknown Rx ED Physical Exam - General Limitations: No Limitations General appearance: alert, in no apparent distress - Head Head exam: Present: atraumatic, normocephalic - Eye Eye exam: Present: normal appearance - ENT ENT exam: Present: mucous membranes moist - Neck Neck exam: Present: normal inspection - Respiratory Respiratory exam: Present: rales. Absent: respiratory distress - Cardiovascular Cardiovascular Exam: Present: regular rate, normal rhythm. Absent: systolic murmur, diastolic murmur, rubs, gallop - GI/Abdominal GI/Abdominal exam: Present: soft, normal bowel sounds - Extremities Exam Extremities exam: Present: normal inspection, pedal edema - Back Exam Back exam: Present: normal inspection - Neurological Exam Neurological exam: Present: alert, oriented X3 - Psychiatric Psychiatric exam: Present: normal affect, normal mood - Skin Skin exam: Present: warm, dry, intact, normal color. Absent: rash ED Course Vital Signs 09/23/21 09/23/21 09/23/21 01:35 05:36 06:48 Temperature 98.4 F Pulse Rate 65 Pulse Rate [ 66 Bilateral] Respiratory 18 Rate Respiratory 18 Rate [Bilateral ] Blood Pressure 172/61 Blood Pressure [Left] O2 Sat by Pulse 92 94 Oximetry 09/23/21 07:19 Temperature Pulse Rate 66 Pulse Rate [ Bilateral] Respiratory 21 Rate Respiratory Rate [Bilateral ] Blood Pressure Blood Pressure 178/49 [Left] O2 Sat by Pulse 94 Oximetry ED Medical Decision Making - Lab Data Result diagrams: 09/23/21 05:40 09/23/21 05:40 - Radiology Data Radiology results: report reviewed, image reviewed - Medical Decision Making work up showed elevated bnp, lasix given and rt feel sbetter Critical care attestation.: If time is entered above; I have spent that time in minutes in the direct care of this critically ill patient, excluding procedure time. ED Disposition Clinical Impression: CHF exacerbation Disposition: 01 HOME / SELF CARE / HOMELESS Is pt being admited?: No Does the pt Need Aspirin: No Condition: Stable Instructions: Heart Failure, Self Care Referrals: MAGDALENE BRADLEY MD [Primary Care Provider] - 3-5 Days
[2021-09-23 08:51] VITALS: BP 176/60
--- NOTE | 2021-09-23 14:12 | Electrocardiograph Report ---
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
== END 2021-09-23 08:52 | disposition home or self-care (01) ==
LOC: ED 00:37
DX: I11.0 Hypertensive heart disease with heart failure (principal); I50.9 Heart failure, unspecified; E11.9 Type 2 diabetes mellitus without complications; K76.9 Liver disease, unspecified; M19.90 Unspecified osteoarthritis, unspecified site; N20.0 Calculus of kidney; J44.1 Chronic obstructive pulmonary disease with (acute) exacerbation; Z98.890 Other specified postprocedural states; Z88.0 Allergy status to penicillin; Z88.6 Allergy status to analgesic agent; Z88.1 Allergy status to other antibiotic agents; Z91.09 Other allergy status, other than to drugs and biological substances; Z79.899 Other long term (current) drug therapy
CPT/HCPCS: 36415; 71045; 80053; 83735; 83880; 84484; 85025; 85610; 93005; 94644; 96374; 99284; J1940